=== PATIENT | male | born 1985 | race Caucasian/White ===

== ENCOUNTER 2021-08-31 16:14 | Outpatient (CLI) | payer OTHER, SELFPAY ==
--- NOTE | ~2021-08-31 | XR_ITS ---
XR shoulder LT min 2V 08/31/2021 17:10 INDICATION: Left shoulder pain PROCEDURE: 4 views left shoulder COMPARISON: No prior studies for comparison. FINDINGS: Fracture, dislocation or subluxation is not identified. The soft tissues appear within norm al limits. No foreign bodies are identified. IMPRESSION: 1: NO ACUTE BONE OR JOINT ABNORMALITY IDENTIFIED. Reviewed, dictated and finalized at location B.
== END 2021-08-31 16:15 | disposition home or self-care (01) ==
LOC: CHSIMG 16:23
PROVIDERS: PCP Family Medicine; Visit Provider Family Medicine
DX: M25.512 Pain in left shoulder (principal)
CPT/HCPCS: 73030

== ENCOUNTER 2021-09-17 07:49 | Outpatient (RCR) | payer OTHER, SELFPAY ==
--- NOTE | 2021-09-17 08:38 | PTOPEVAL ---
Thank you for referring Eligio Rose to [facility].? The patient is scheduled to be seen for therapy? __2__x/week for 10 visits. Please review, sign, date and return this plan of care TIFFANIE. I agree with and certify that the following plan of care is medically necessary. Referring Physician Date Admitting Provider: Attending Provider: Cooper Saini MD Referring Provider: *PT Outpatient Evaluation Start: 09/10/21 07:02 Freq: Status: Active Protocol: Document 09/17/21 07:57 PRAMOD (Rec: 09/17/21 08:37 PRAMOD [email or web address]) Therapy Assessment Status Assessment Status Assessment Status Evaluation Evaluation Information Problem Diagnosis left shoulder pain Onset 09/03/21 Subjective Information Pt. reports that he has had Query Text:As Reported By Patient/ shoulder pain for about 1 Family month. He reports that pain is noted with reaching overhead with the left arm. Pt. reports he has had xray. He states that pain is also increased with reaching behind his back. He states that he does have some trouble with sleep due to pain in the left shoulder. He reports that do basic yardwork is difficult due to pain. His goal for therapy is to decrease his left shoulder pain. Pain Assessment Timing of Pain Assessment Timing of Pain Assessment Pre-Treatment Pain Scale Pain Scale Used Numeric (1 - 10) Self Report Pain Assessment Left Shoulder(s) Reported Pain Level 3 Lowest Pain Intensity 2 Greatest Pain Intensity 4 Pain Aggravating Factors Exercise/Activity,Lifting Pain Behaviors None Pain Score Pain Score 3: Self Report Interventions Used Interventions Used By Clinicians Electrical Stimulation, Exercise,Heat Upper Extremity Range of Motion General Upper Extremity Range of Motion Gross Upper Extremity Range of Motion -right shoulder flexion 165 Comments degrees -left shoulder flexion 142 degrees -Pt. reaches to the mid thoracic region with the right u.e. and lower thoracic region with the left u.e. with combined shoulder IR and extension
--- NOTE | 2021-10-26 09:10 | PTOPEVAL ---
Thank you for referring Eligio Rose to [facility].? The patient is scheduled to be seen for therapy? ____x/week for ___ weeks. Please review, sign, date and return this plan of care TIFFANIE. I agree with and certify that the following plan of care is medically necessary. Referring Physician Date Admitting Provider: Attending Provider: Cooper Saini MD Referring Provider: *PT Outpatient Evaluation Start: 09/10/21 07:02 Freq: Status: Active Protocol: Document 10/26/21 08:00 JOSE (Rec: 10/26/21 08:59 [facility] [email or web address]) Evaluation Information Problem Diagnosis left shoulder pain Onset 09/03/21 Additional Evaluation Detail quick dash = 6% functionally declined Subjective Information patient reports he feels Query Text:As Reported By Patient/ Alright this date. he reports Family he still has pain in the L shouldet with use and liftin/ reaching overhead. he reports when he does a lat pulldown releasing the weight after the last rep is painful. he reports he also pulled on his shoulder getting out of bed and had some pain this morning . Pain Assessment Timing of Pain Assessment Timing of Pain Assessment Assessment Pain Scale Pain Scale Used Numeric (1 - 10) Self Report Pain Assessment Left Shoulder(s) Reported Pain Level 3 Greatest Pain Intensity 3 Pain Score Pain Score 3: Self Report Interventions Used Interventions Used By Clinicians Activity or ADL's,Education, Electrical Stimulation, Exercise,Heat Upper Extremity Range of Motion General Upper Extremity Range of Motion Gross Upper Extremity Range of Motion -left shoulder flexion 158 Comments degrees -functional L ER reach to the upper thoracic spine -functional L IR reach to the middle/upper thoracic spine -left shoulder ER AROM 80 degrees, prom 85 degrees Upper Extremity Muscle Strength Testing General Upper Extremity Strength Gross Upper Extremity Strength Comments -left shoulder flexion 5/5 -left shoulder ER 4+/5 -left shoulder IR 5/5 -left shoulder abduction 4+/5 General Exercise General Exercises Exercise Description Ther ex Query Text:Record Sets, Reps, -ar
--- NOTE | 2021-11-09 08:44 | PTOPEVAL ---
Thank you for referring Eligio Rose to [facility].? The patient is scheduled to be seen for therapy? ____x/week for ___ weeks. Please review, sign, date and return this plan of care TIFFANIE. I agree with and certify that the following plan of care is medically necessary. Referring Physician Date Admitting Provider: Attending Provider: Cooper Saini MD Referring Provider: *PT Outpatient Evaluation Start: 09/10/21 07:02 Freq: Status: Active Protocol: Document 11/09/21 08:00 Mary (Rec: 11/09/21 08:44 [facility] [email or web address]) Therapy Assessment Status Assessment Status Assessment Status Discharge Evaluation Information Problem Diagnosis left shoulder pain Onset 09/03/21 Additional Evaluation Detail quick dash = 11% functionally declined Subjective Information patient reports he feels good Query Text:As Reported By Patient/ this date. he reports he has Family been working out more at the gym. he reports he is sore but has no pain in the left shoulder. Pain Assessment Timing of Pain Assessment Timing of Pain Assessment Assessment Self Report Self Report Pain Level 0 Pain Score Pain Score 0: Self Report Upper Extremity Range of Motion General Upper Extremity Range of Motion Gross Upper Extremity Range of Motion -left shoulder flexion 160 Comments degrees -functional L ER reach to the upper thoracic spine -functional L IR reach to the middle/upper thoracic spine Upper Extremity Muscle Strength Testing General Upper Extremity Strength Gross Upper Extremity Strength Comments -left shoulder flexion 5/5 -left shoulder ER 5/5 -left shoulder IR 5/5 -left shoulder abduction 5/5 General Exercise General Exercises Exercise Description Ther ex Query Text:Record Sets, Reps, -bilateral UE arm push and Resistance, and Position pull circles x10 minutes with resistance for improved UE strength and CV endurance -tband light blue rows, ext, er, ir x30 each bilat -flex and scap 3x10 bilat with 5lb weight -bent over rows 10lb x15, 20lb x15 bilat -re-evaluation PT Clinical Summary Clinical Summary Protocol: PTEVCODE PT Clinical Summary mr. rose presents to skilled
== END 2021-11-09 11:21 | disposition home or self-care (01) ==
LOC: CHSPT 07:49
PROVIDERS: PCP Family Medicine; Visit Provider Family Medicine
DX: M25.512 Pain in left shoulder (principal)
CPT/HCPCS: 97014; 97110; 97140; 97161; G0283

== ENCOUNTER 2021-10-09 08:33 | Outpatient (CLI) | payer OTHER, SELFPAY ==
--- NOTE | 2021-10-09 11:00 | NEURO_ITS ---
Impression: # Complains of numbness of left 5th finger. # No Carpal Tunnel Syndrome. # Left ulnar neuropathy across the elbow. # Normal needle/EMG exam. Nerve Conduction Studies Anti Sensory Summary Table Stim Site NR Peak (ms) P-T Amp (?V) Site1 Site2 Delta-P (ms) Dist (cm) Ruy (m/s) Left Median Anti Sensory (2-3nd Digit) Wrist 2.8 73.0 Wrist 2-3nd Digit 2.8 14.0 50 Wrist 2.8 40.0 Wrist 2-3nd Digit 2.8 14.0 50 Left Radial Anti Sensory (Base 1st Digit) Wrist 1.9 12.7 Wrist Base 1st Digit 1.9 0.0 Left Ulnar Anti Sensory (5th Digit) Wrist 2.5 32.0 Wrist 5th Digit 2.5 14.0 56 Motor Summary Table Stim Site NR Onset (ms) O-P Amp (mV) Site1 Site2 Delta-0 (ms) Dist (cm) Ruy (m/s) Left Median Motor (Abd Poll Brev) Wrist 3.2 1.9 Elbow Wrist 4.7 28.0 60 Elbow 7.9 1.7 Left Ulnar Motor (Abd Dig Minimi) Wrist 2.7 6.0 A Elbow Wrist 5.5 28.0 51 A Elbow 8.2 4.3 B Elbow Wrist 3.7 22.0 59 B Elbow 6.4 5.1 F Wave Studies NR F-Lat (ms) L-R F-Lat (ms) Left Median (Mrkrs) (Abd Poll Brev) 27.68 Left Ulnar (Mrkrs) (Abd Dig Min) 28.67 EMG Side Muscle Nerve Root Ins Act Fibs Amp Dur Recrt Comment Left 1stDorInt Ulnar C8-T1 Nml Nml Nml Nml Nml Left Ext Indicis Radial (Post Int) C7-8 Nml Nml Nml Nml Nml Left Ext Digitorum Radial (Post Int) C7-8 Nml Nml Nml Nml Nml Left BrachioRad Radial C5-6 Nml Nml Nml Nml Nml Left PronatorTeres Median C6-7 Nml Nml Nml Nml Nml Left Abd Poll Brev Median C8-T1 Nml Nml Nml Nml Nml Left ABD Dig Min Ulnar C8-T1 Nml Nml Nml Nml Nml MTDD
== END 2021-10-09 08:34 | disposition home or self-care (01) ==
PROVIDERS: PCP Family Medicine; Visit Provider Family Medicine
DX: G56.22 Lesion of ulnar nerve, left upper limb (principal)
CPT/HCPCS: 95886; 95909

== ENCOUNTER 2023-04-22 11:17 | Outpatient (CLI) | payer OTHER, SELFPAY ==
--- NOTE | ~2023-04-22 | XR_ITS ---
XR lumbar spine 2-3V DATE: 04/22/2023 11:37 INDICATION: Low back pain TECHNIQUE: AP, lateral, coned lateral lumbosacral views COMPARISON: None FINDINGS: Normal alignment of the lumbar spine. No fracture or bone destruction or spondylolisthesis. Included lower thoracic and lumbar pedicles are intact. There is severe degenerative disease and prominent anterior spurring at L5-S1. There is mild degenera tive disc disease at L4-5. The remaining lumbar interspaces are well preserved. The sacroiliac joints are intact. IMPRESSION: Severe degenerative disc disease at L5-S1, mild degenerative disc disease at L4-5 Reviewed, dictated and finalized at location L. STENCILER IMPRESSION: Severe degenerative disc disease at L5-S1, mild degenerative disc d isease at L4-5
== END 2023-04-22 11:18 | disposition home or self-care (01) ==
LOC: CHSIMG 11:19
PROVIDERS: PCP Family Medicine; Visit Provider Family Medicine
DX: M54.50 Low back pain, unspecified (principal); M51.36 Other intervertebral disc degeneration, lumbar region
CPT/HCPCS: 72100

== ENCOUNTER 2023-05-13 09:14 | Outpatient (RCR) | payer OTHER, SELFPAY ==
--- NOTE | 2023-05-13 10:16 | OPREHPOC ---
Outpatient Therapy Plan of Care This is a Multidisciplinary Plan of Care that may contain components documented by all disciplines (PT, OT, and ST.) PT Problem 1 PT Problem #1 Knowledge Deficit PT Goal 1 Goal The patient will be independent in a home exercise program to continue after discharge from formal PT. Target Visit 12 PT Problem 2 PT Problem #2 Pain PT Goal 1 Goal The patient will report no greater than 2/10 low back pain with daily activities. Target Visit 12 PT Problem 3 PT Problem #3 Impaired Functional Mobil PT Goal 1 Goal The patient will have 20% or less self perceived disability per the Modified Oswestry pain questionnaire. PT Problem 4 PT Problem #4 Impaired Strength PT Goal 1 Goal The patient will demonstrate 4/5 strength in the upper abdominals, lower abdominals, and lumbar extensors to improve lifting ability. Target Visit 12
--- NOTE | 2023-05-13 10:17 | PTOPEVAL1 ---
Assessment and note entered by Milady Barrientos, PT Evaluation Information Assessment Status Evaluation Diagnosis Low Back Pain Subjective Information Eligio Rose reports he has had low back pain for several years and it is gradually getting worse. He denies an injury that started pain but reports he was in the [employer] for 8 years. He had recent x- rays that showed severe lumbar degenerative disc disease with spurring at L5-S1. He reports pain comes and goes and sometimes he has nerve pain. He will typically get nerve pain down the back of the left leg and occasionally in the right. He also notes tingling if he sits in a weird position too long. 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 He also notes pain with bending over at the waist and he is limited with standing and walking as well. He has tried chiropractor care in the past with some improvements but does not currently go. Reported Pain Level Pain Score 4: Self Report Assessment PT Clinical Summary Eligio Rose presents with chronic low back pain and has been diagnosed with degenerative disc disease. He has difficulty with prolonged sitting, prolonged walking, and bending at the waist leading to difficulty performing a desk job, shopping, and cleaning/dressing his lower extremity. He objectively demonstrates decreased and painful lumbar AROM, decreased core strength, decreased bilateral hip strength, decreased hamstring and piriformis flexibility, and tenderness at the left SIJ and L5 areas. He also has positive special tests for lumbar nerve root irritation. He will benefit from skilled PT to address these limitations. Plan of Care Interventions Electrical Stimulation,Hot Pack/Cold Pack,Manual Therapy,Mechanical Traction,Neuro Re-education, Patient/Caregiver Educati,Therapeutic Activities, Therapeutic Exercise PT Services Indicated Yes Treatment Frequency and 3 times a week for 12 visits Duration These treatments will address the objective and functional deficits as defined above. The patient will be advanced safely and appropriately in order for the patient to progress towards his/her prior level of function. Additional exercises will be introduced and as well as a comprehensive home exercise program upon discharge, if needed, ?to ensure carryover of functional gains achieved in the clinic. This treatment plan has been reviewed and agreement upon by the patient.
--- NOTE | 2023-06-04 08:03 | OPREHPOC ---
Outpatient Therapy Plan of Care This is a Multidisciplinary Plan of Care that may contain components documented by all disciplines (PT, OT, and ST.) PT Problem 1 PT Problem #1 Knowledge Deficit PT Goal 1 Goal The patient will be independent in a home exercise program to continue after discharge from formal PT. Target Visit 12 Progress Partially Met PT Problem 2 PT Problem #2 Pain PT Goal 1 Goal The patient will report no greater than 2/10 low back pain with daily activities. Target Visit 12 Progress Not Met PT Problem 3 PT Problem #3 Impaired Functional Mobil PT Goal 1 Goal The patient will have 20% or less self perceived disability per the Modified Oswestry pain questionnaire. Progress Not Met PT Problem 4 PT Problem #4 Impaired Strength PT Goal 1 Goal The patient will demonstrate 4/5 strength in the upper abdominals, lower abdominals, and lumbar extensors to improve lifting ability. Target Visit 12 Progress Not Met
--- NOTE | 2023-06-04 08:03 | PTOPPROGNS ---
Assessment and note entered by Milady Barrientos, PT Evaluation Information Assessment Status Progress Diagnosis Low Back Pain Onset 05/08/23 Subjective Information Eligio Rose reports that his low back pain has not really changed since initiating PT. He notes stiffness and pain that is worse in the morning. He typically sleeps on his stomach. He states his thought she felt a lump in his left lower back recently while rubbing his back. He thought the traction tried in PT was a little helpful initially but then started making him more stiff. Assessment PT Clinical Summary Eligio Rose has completed 10 skilled PT visits. He is reporting no big change in low back pain symptoms noting stiffness in the mornings. He is a stomach sleeper and has been educated on ideal sleeping positions to promote a neutral spine. He is making progress with strength goals and demonstrates improved lumbar AROM since initiating PT. He does continue to have core and hip strength deficits, tenderness along the left lower lumbar structures, and constant pain. He will continue to benefit from skilled PT to further address these limitations. Plan of Care Interventions Electrical Stimulation,Hot Pack/Cold Pack,Manual Therapy,Mechanical Traction,Neuro Re-education, Patient/Caregiver Educati,Therapeutic Activities, Therapeutic Exercise PT Services Indicated Yes Treatment Frequency and Continue with remaining 2 visits on POC. Duration These treatments will address the objective and functional deficits as defined above. The patient will be advanced safely and appropriately in order for the patient to progress towards his/her prior level of function. Additional exercises will be introduced and as well as a comprehensive home exercise program upon discharge, if needed, ?to ensure carryover of functional gains achieved in the clinic. This treatment plan has been reviewed and agreement upon by the patient.
--- NOTE | 2023-06-09 07:41 | PTOPDC ---
Assessment and note entered by Magda Jacobson DPT Evaluation Information Assessment Status Discharge Diagnosis Low Back Pain Onset 05/08/23 Subjective Information patient reports that he continues to be more stiff in the mornings. he reports he has been trying to sleep in different positions with no change. he reports he continues to be independent with HEP. he reports that his PCP is supposed to be sending a consult for an ortho. Reported Pain Level Pain Score 4: Self Report Assessment PT Clinical Summary Mr. Rose has been seen for 12 visits of skilled PT from 05/13/23-06/09/23. Patient reports limited progress made in skilled PT with pain and stiffness remaining the same since start of PT. He continues to demonstrate core and back extensor weakness. He reports pain and stiffness is worse in the mornings. He reports he is independent with HEP. He will be discharged at this time and will follow up with MD regarding ortho consult. Plan of Care PT Services Indicated No
== END 2023-06-09 08:04 | disposition home or self-care (01) ==
LOC: CHSPT 09:14
PROVIDERS: Visit Provider Family Medicine
DX: M54.50 Low back pain, unspecified (principal)
CPT/HCPCS: 97012; 97014; 97110; 97140; 97161; 97530; G0283

== ENCOUNTER 2024-10-11 15:32 | Outpatient (CLI) | payer OTHER, SELFPAY ==
--- NOTE | ~2024-10-11 | XR_ITS ---
EXAM/ PROCEDURE: XR hand RT min 3V - 10/11/2024 15:35 CDT HISTORY: 39 years old Male with Pain in right hand over 3rd MCP joint after board fell on it COMPARISON: None available TECHNIQUE: Three view(s) FINDINGS/ IMPRESSION: Subacute displaced fracture of the fourth middle phalanx with dorsal angulation.Joint spaces are with in normal limits. Reviewed, dictated and finalized at location A.
--- OUTSIDE RECORDS SUMMARY | 2024-10-11 15:35 | XMS_ITS | Encounter Summary ---
Author Name [facility] [facility] [place] Address [address] [place] [address] Care Team Providers Care Copper Miner Name Role Phone MITALI MEYER Primary Care Provider Unavailabl e Insurance Providers: All historical and current Section Date Range: From patient's date of to the date document was created. This section includes the names of all active insurance providers for the patient. Insurance Provider Type of Coverage Plan Name Start of Policy Coverage End of Policy Coverage Group Number Member ID Insurance Provider's Telephone Number Policy Laird's Name Patient's Relationship to Policy Laird [employer] PRES[employer] ION PRESTON ANTONIO DACOSTA Mar 24, 2023 [id number] JUWAN,CYNDI ID PATIENT [employer] PREFERRED PROVIDER ORGANIZAT ION (PPO) PRESTONBhavesh DACOSTA HEALT H Mar 24, 2020 [id number] [phone] JUWAN,CYNDI ID PATIENT Selected Encounter This section includes the information on record at [place] for the Encounter. Date/Time Encounter Type Encounter Description Reason Provider Source Jun 01, 2024 08:00 AM CHIROPRACT MANJ 3-4 [employer] D[employer] TECHNICIAN ICD-10-CM M54.50 Low back pain, unspecified SUNI GILMORE Encounter Template Text not used by [facility] Assessments - Encounter Diagnoses This section includes the primary and secondary diagnoses documented for the Encounter. Date/Time Primary/Secondary Diagnosis Diagnosis Name Provider Source Jun 01, 2024 08:32 AM PRIMARY Low back pain, unspecified GILMOREZACK Briones [facility] Jun 01, 2024 08:32 AM SECONDARY Cervicalgia ZACK GILMORE [facility] Jun 01, 2024 08:32 AM SECONDARY Pain in thoracic spine ZACK GILMORE [facility] Encounter Notes: All associated encounter notes This section contains the clinical notes associated to the Encounter. Date/Time Encounter Note(s) Provider Source Jun 01, 2024 07:45 AM CHIROPRACTIC NOTE: LOCAL TITLE: CHIROPRACTIC [facility] F/U [facility] STANDARD TITLE: CHIROPRACTIC NOTE DATE OF NOTE: JUN 01, 2024@07:45 ENTRY DATE: JUN 01, 2024@07:45:40 AUTHOR: ZACK GILMORE COSIGNER: URGENCY: STATUS: COMPLETED VISIT #4 SUBJECTIVE: Nilton stated he has not felt too bad. The lower back has been doing pretty good. He is going to the gym, stretching and riding his motorcycle. The mid back is a little achy. He was looking to the side some last week and that aggravated his neck. MOVEMENT/POSTURE: The ambulates without difficulty or the need for assistance. SEGMENTAL DYSFUNCTION: Joint dysfunction was noted SI joint, lumbar, thoracic and cervical spine. PALPATION: Tight and tender muscles of the lumbar and thoracic regions. CERVICAL ACTIVE RANGE OF MOTION: Flexion 40 degrees tight/achy left C/T region, Extension 50 degrees, Lateral Bending 40 degrees right stretch left, 40 degrees left discomfort left, Rotation 60 degrees right, 55 degrees left, stiff left. LUMBAR ACTIVE RANGE OF MOTION: Flexion 90 degrees stiff, Extension 25 degrees pinch central lumbosacral, Lateral Bending 20 degrees bilaterally stretch contralaterally, Rotation 25 degrees bilaterally with stiffness in both directions. ASSESSMENT: The patient does have a mechanical form of low back pain with associated segmental dysfunction of the SI joint, lumbar, and thoracic regions complicated by degenerative changes in the lumbar spine. The Napoleon is a candidate for the [place] Program but my prognosis remains guarded based on the chronic nature of his condition, the moderate DJD and spurring he noted from his X-Ray findings. PLAN: The patient was given a review of findings following the exam. The benefits, risks and alternatives to manager care were discussed with the patient, along with an opportunity to ask questions. Patient then gave an informed consent to treatment. Plan of care will consist of 4-6 visits consisting of chiropractic manipulation with an incremental increase in home exercise depending on the patients response. The patient agrees to this plan. Treatment I did manual flexion/distraction on the lumbar spine. Vibratory massage was used with the Hyperice massage instrument to help decrease muscle tightness in the lumbar and thoracic spine. Spinal manipulation using the IQ adjusting instrument on the SI joint, lumbar, thoracic and cervical spine. The left C/T region was still tight so I adjusted it manually supine. Therapeutic Exercise: I told the Napoleon how to use the bridge equipment he uses at the gym. He has been feeling it in the quads rather than the glutes. I went over body placement. The reported feeling better following his treatment. HOME CARE: went over how to do bridge exercise on a machine he uses at the gym. Continue to do the recommendations below. I remined him to do the exercises I recommended in addition to what he is doing at the gym. hip flexor stretch right side. Bridge exercise 15x/day work into 3 sets. knee to chest, glute and hamstring stretches 5x/day 20 second hold. ice if sore. sit with feet flat on the floor. place a pillow under the knees if lying on back. Place a pillow in between the knees if lying on side. RTC: 06/01/24 /rober/ Zack Gilmore D.C. Chiropractic Physician-Fee Basis Signed: 06/01/2024 08:32 ZACK GILMORE [facility]
--- OUTSIDE RECORDS SUMMARY | 2024-10-11 15:35 | XMS_ITS | Clinical Summary ---
Author Organization [facility] Address [address] [place] [address] Phone Care Team Providers Care Cardiovascular Surgical Tech Name Role Phone Louis Vasquez MD Primary Care Provider [phone] Allergies Active Allergy Reactions Criticality Noted Date Comments Tramadol Vomiting 02/03/2024 Medications methocarbamol (ROBAXIN) 750 MG Tablet Take 750 mg by mouth in the morning and at bedtime. Active diclofenac (VOLTAREN) 75 MG Tablet Delayed Response Take 75 mg by mouth 2 times daily. STOPPED TAKING ON 02/04/2024 FOR SURGERY ON 02/12/2024 Active Multiple Vitamin (MULTIVITAMIN PO) Take 1 Tablet by mouth daily. INSTRUCTED TO HOLD FOR 3 DAYS PRIOR TO SURGERY ON 02/12/2024 Active mometasone (Nasonex) 50 MCG/ACT Suspension 2 Sprays by Nasal route daily. Use in each nostril as directed. Active acetaminophen (Tylenol) 325 MG Tablet Take 325 mg by mouth every 4 hours as needed. Active Active Problems Problem Noted Date Diagnosed Date Ulnar neuropathy at elbow of left upper extremit y 02/12/2024 Lipoma of left forearm 02/12/2024 Family History Medical History Relation Name Comments No Known Problems Father Cirrhosis Mother Diabetes Mother Heart Disease Mother Hypertension Mother Relation Name Status Comments Father Alive Mother Social History Tobacco Use Types Packs/Day Years Used Date Smoking Tobacco: Former Cigarettes Q uit: 2018 Smokeless Tobacco: Never Alcohol Use Standard Drinks/Week Comments Yes 0 (1 standard drink = 0.6 oz pur e alcohol) rarely Sexually Active Control Partners Comments Yes Female Sex and Gender Information Value Date Recorded Sex Assigned at Not on file Legal Sex Male 2:14 PM CDT Gender Identity Not on file Sexual Orientation Not on file Last Filed Vital Signs Vital Sign Reading Time Taken Comments Blood Pressure 124/79 02/12/2024 10:00 AM LABOR STANDARDS DIRECTOR Pulse 75 02/12/2024 10:00 AM LABOR STANDARDS DIRECTOR Temperature 36 C (96.8 F) 02/12/2024 9:47 AM LABOR STANDARDS DIRECTOR Respiratory Rate 16 02/12/2024 10:00 AM LABOR STANDARDS DIRECTOR Oxygen Saturation 94% 02/12/2024 10:00 AM LABOR STANDARDS DIRECTOR Inhaled Oxygen Concentration - - Weight 98.5 kg (217 lb 1.6 oz) 02/12/2024 6:06 A M LABOR STANDARDS DIRECTOR Height 168.9 cm (5' 6.5) 02/12/2024 6:06 AM LABOR STANDARDS DIRECTOR Body Mass Index 34.52 02/12/2024 6:06 AM LABOR STANDARDS DIRECTOR Plan of Treatment Health Maintenance Due Date Last Done Comments Hepatitis C Virus (HCV) Screening 1985 Human Papillomavirus (HPV) Immunization (1 - Male 3-dose series) 07/24/1999 SARS-COV-2 Immunization (3 - season) 2023 07/08/2020, 06/17/2020 Influenza Immunization (#1) 11/22/202403/2023, 12/12/2022, 01/08/2019, Additional history exists Respiratory Syncytial Virus (RSV) Immunization (Adult) (1 - 1-dose 75+ series) 07/24/2059 Meningococcal Immunization (ACWY) Aged Out 07/17/2007 No longer eligible based on patient's age to complete this topic Hepatitis B Immunization Completed 009, 08/18/2007, 07/17/2007 TdaP Immunization Completed 10/20/2015, 07/17/2007 Pneumococcal Immunization Combined Aged Out No longer eligible based on patient's age to complete this topic Rotavirus Immunization Aged Out No lo nger eligible based on patient's age to complete this topic [place] [address] [place] [address] Care Teams Cardiovascular Surgical Tech Relationship Specialty Start Date End Date Louis Vasquez MD [address] [place] [address] PCP - General Orthopaedic Surgery 11/04/23
--- OUTSIDE RECORDS SUMMARY | 2024-10-11 15:35 | XMS_ITS | Clinical Summary ---
Author Organization [facility] Address [address] [place] [address] Care Team Providers Care Awning Hanger Helper Name Role Phone Unavailable Primary Care Provider Unavailabl e Social History Tobacco Use Types Packs/Day Years Used Date Smoking Tobacco: Never Assessed Sex and Gender Information Value Date Recorded Sex Assigned at Not on file Legal Sex Male 9:22 PM CDT Gender Identity Not on file Sexual Orientation Not on file Last Filed Vital Signs Vital Sign Reading Time Taken Comments Blood Pressure 129/82 06/18/2016 9:14 AM CDT Pulse 67 06/18/2016 9:14 AM CDT Temperature - - Respiratory Rate - - Oxygen Saturation - - Inhaled Oxygen Concentration - - Weight 90.7 kg (200 lb) 06/18/2016 9:14 AM CDT Height 167.6 cm (5' 6) 06/18/2016 9:14 AM CDT Body Mass Index 32.28 06/18/2016 9:14 AM CDT Plan of Treatment Health Maintenance Due Date Last Done Comments Annual Physical 07/24/1987 Hepatitis C 2002 DTaP, Tdap and Td Vaccines ( 1 - Tdap) 07/24/2003 Hepatitis B Vaccines (1 of 3 - 19+ 3-dose series) 07/24/2003 HPV Vaccines (1 - 3-dose SCD M series) 07/24/2011 COVID-19 Vaccine (2023-2 5 season) 2023 Meningococcal B Vaccine Aged Out No l onger eligible based on patient's age to complete this topic Meningococcal Vaccine Aged Out No antione carolina eligible based on patient's age to complete this topic Pneumococcal Vaccine: Pediat rics (0 to 5 Years) and At-Risk Patients (6 to 49 Years) Aged Out No longer eligible b ased on patient's age to complete this topic RSV Immunizations Under 20 Months Aged Out No longer eligible based on patient's age to complete this topic
--- OUTSIDE RECORDS SUMMARY | 2024-10-11 15:35 | XMS_ITS | Encounter Summary ---
Author Organization [facility] Address [address] [place] [address] Phone Care Team Providers Care Podiatry Doctor Name Role Phone Louis Vasquez MD Primary Care Provider [phone] Reason for Referral * Radiology Services (Routine) - Closed Specialty Diagnoses / Procedures Referred By Amairani sauceda Referred To Contact Radiology Diagnoses Pre-op testing Procedures EKG 12 LEAD Louis Vasquez MD [address] [place] [address] Phone: tel: fax: Referral ID Status Reason Start Date Expiration Date Visits Re quested Visits Authorized [id number] Closed 10/13/2023 1 1 Encounter Details Date Type Department Care Team (Latest Contact Info) Description 10/13/2023 [facility] [address] [place] [address] Louis Vasquez MD [address] [place] [address] Pre-op testing (Primary Dx) Social History Tobacco Use Types Packs/Day Years Used Date Smoking Tobacco: Never Assessed Sex and Gender Information Value Date Recorded Sex Assigned at Not on file Legal Sex Male 2:14 PM CDT Gender Identity Not on file Sexual Orientation Not on file documented as of this encounter Plan of Treatment Not on file documented as of this encounter Results * EKG 12 LEAD (11/04/2023 11:39 AM CDT) Ventricular Rate 57 BPM EXTERNAL EKG Atrial Rate 57 BPM EXTERNAL EKG P-R Interval 156 ms EXTERNAL EKG QRS Duration 94 ms EXTERNAL EKG Q-T Duration 412 ms EXTERNAL EKG QTC CALCULATION 401 ms EXTERNAL EKG P [place] 32 degrees EXTERNAL EKG R [place] 0 degrees EXTERNAL EKG T [place] 11 degrees EXTERNAL EKG 11/04/2023 11:3 9 AM CDT Impressions EXTERNAL EKG - 11/05/2023 3:33 AM CDT Sinus bradycardia Otherwise normal ECG No previous ECGs available Confirmed by Abraham Blair ([id number]) on 11/05/2023 3:33:26 AM Narrative Procedure Note Abraham Blari MD PhD - 11/05/2023 IMPRESSION: Sinus bradycardia Otherwise normal ECG No previous ECGs available Confirmed by Abraham Blair ([id number]) on 11/05/2023 3:33:26 AM Louis Vasquez MD IMG ECG ORDERABLES Final Result EXTERNAL EKG * CMP (COMPREHENSIVE METABOLIC PANEL) (11/04/2023 11:32 AM CDT) SODIUM 139 136 - 145 mmol/L 11/04/2023 1:31 PM CDT [facility] POTASSIUM 4.2 3.5 - 5.1 mmol/L 11/04/2023 1:31 PM CDT [facility] CHLORIDE 106 98 - 107 mmol/L 11/04/2023 1:31 PM CDT [facility] CO2, VENOUS 27 22 - 30 mmol/L 11/04/2023 1:31 PM CDT [facility] ANION GAP 10.2 <18.0 mmol/L 11/04/2023 1:31 PM CDT [facility] GLUCOSE 92 70 - 99 mg/dL 11/04/2023 1:31 PM CDT [facility] BUN 12 9 - 21 mg/dL 11/04/2023 1:31 PM [facility] CREATININE, BLOOD 0.94 0.70 - 1.30 mg/dL 11/04/2023 1:31 PM [facility] BUN/CREATININE RATIO 13 12 - 20 ratio 11/04/2023 1:31 PM [facility] TOTAL PROTEIN 6.8 6.3 - 8.2 g/dL 11/04/2023 1:31 PM [facility] ALBUMIN 4.4 3.5 - 5.0 g/dL 11/04/2023 1:31 PM [facility] A/G RATIO 1.8 1.0 - 2.2 11/04/2023 1:31 PM [facility] CALCIUM 9.5 8.7 - 10.5 mg/dL 11/04/2023 1:31 PM [facility] T BILI 0.4 0.2 - 1.2 mg/dL 11/04/2023 1:31 PM [facility] SGOT (AST) 18 5 - 34 U/L 11/04/2023 1:31 PM [facility] SGPT (ALT) 24 0 - 55 U/L 11/04/2023 1:31 PM [facility] ALKALINE PHOSPHATASE 40 40 - 150 U/L 11/04/2023 1:31 PM [facility] IS THE PATIENT REQUIRED TO BE FASTING? No 11/04/2023 1:31 PM [facility] GFR, ESTIMATED >60 >=60 11/04/2023 1:31 PM [facility] Comment: Creatinine Clearance is the preferred criteria for selecting drug dose adjustments in renally impaired patients. The GFR is provided as additional pertinent clinical information. GFR is reported in mL/min/1.73 sq m. Calculation based on the Chronic Kidney Disease Epidemiology Collaboration (CKD- EPI) equation refit without adjustment for race. GFR, EST. >60 >=60 024 1:31 PM CDT [facility] GFR, EST. NONAFRICAN >60 >=60 11/04/2023 1:31 PM CDT [facility] Blood Venipuncture / Unknown 11/04/2023 11:32 AM CDT 11/04/2023 11:58 AM CDT us Louis Vasquez MD CHEMISTRY ORDERABLES Final Resul t [facility] [address] [place] [address] documented in this encounter Visit Diagnoses Diagnosis Pre-op testing- Primary Preoperative examination, unspecified Pre-op testing Preoperative examination, unspecified documented in this encounter Care Teams Podiatry Doctor Relationship Specialty Start Date End Date Louis Vasquez MD [address] [place] [address] PCP - General Orthopaedic Surgery 11/04/23 documented as of this encounter
--- OUTSIDE RECORDS SUMMARY | 2024-10-11 15:35 | XMS_ITS | Encounter Summary ---
Author Organization [facility] Address [address] [place] [address] Phone Care Team Providers Care Data Input Clerk Name Role Phone Louis Vasquez MD Primary Care Provider [phone] Encounter Details Date Type Department Care Team (Late st Contact Info) Description 01/19/2024 Transcribe Orders [facility] Preop/Pacu II [address] [place] [address] Louis Vasquez MD [address] [place] [address] Social History Tobacco Use Types Packs/Day Years Used Date Smoking Tobacco: Former Cigarettes Smokeless Tobacco: Never Alcohol Use Standard Drinks/Week Comments Yes 0 (1 standard drink = 0.6 oz pur e alcohol) SOCIALLY Sex and Gender Information Value Date Recorded Sex Assigned at Not on file Legal Sex Male 2:14 PM CDT Gender Identity Not on file Sexual Orientation Not on file documented as of this encounter Plan of Treatment Not on file documented as of this encounter Visit Diagnoses Not on filedocumented in this encounter Care Teams Data Input Clerk Relationship Specialty Start Date End Date Louis Vasquez MD [address] [place] [address] PCP - General Orthopaedic Surgery 11/04/23 documented as of this encounter
--- OUTSIDE RECORDS SUMMARY | 2024-10-11 15:35 | XMS_ITS | Encounter Summary ---
Author Name [facility] Organization [facility] Address [address] [place] [address] Care Team Providers Care Winchman/Crane Operator Name Role Phone MITALI MEYER Primary Care [...] Policy Laird [facility] PRESCRIPT ION PRESTON DACOSTA Mar 24, 2023 [id number] JUWAN,CYNDI ID PATIENT UMR PREFERRED PROVIDER ORGANIZAT ION (PPO) PRESTONBhavesh DACOSTA HEALT H Mar 24, 2020 [id number] JUWAN,CYNDI ID PATIENT Selected Encounter This section includes the information on record at [place] for the Encounter. 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 Date/Time Primary/Secondary Diagnosis Diagnosis Name Provider Source May 04, 2024 12:38 PM PRIMARY Vertebrogenic low back pain ZACK GILMORE [facility] May 04, 2024 12:38 PM SECONDARY Pain in thoracic spine ZACK GILMORE [facility] Plan of Treatment: Future Appointments (+ 6 months) and Future Tests (+/- 45 days) The Plan of Treatment section includes future care activities for the patient from all [place] treatmentfacilities. This section includes future appointments and future orders which are active, pending or scheduled. Future Appointments This section includes appointments that were scheduled to occur 6 months from the date of the Encounter, up to a maximum of 20 appointments. The data comes from all [place] treatment facilities. Appointment Date/Time Appointment Type Appointme nt Facility Name May 11, 2024 08:00 AM AMBULATORY - NONE [facility] May 25, 2024 08:00 AM AMBULATORY - NONE [facility] Jun 01, 2024 08:00 AM AMBULATORY - NONE [facility] Encounter Notes: All associated encounter notes This section contains the clinical notes associated to the Encounter. Date/Time Encounter Note(s) Provider Source May 04, 2024 08:56 AM CONSULT: LOCAL TITLE: [facility] STANDARD TITLE: CONSULT DATE OF NOTE: MAY 04, 2024@08:56 ENTRY DATE: MAY 04, 2024@08:57:05 AUTHOR: ZACK GILMORE EXP COSIGNER: URGENCY: STATUS: COMPLETED REQUESTING PROVIDER: MITALI MEYER Please note that this dictation was completed with computer voice recognition software, often unanticipated grammatical, syntax and other interpretive errors are inadvertently transcribed by the computer software. Please disregard these errors. 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 He gets pain just below the shoulder blades on shopping days/standing on hard floors for a while. He will try to get [facility]. He always has knee pain. The big toe mainly in the left foot bothers him. They tested him for Gout. It was negative. The noted he gets sciatica at times with random movements but not currently. It will radiate a tingling sensation into the right buttock, sometimes posterior thigh and at times into the lower leg and foot. He is going to the gym to try and strengthen his core. The lower back is aggravated when he is lying on his back. It feels better when he is lying on his stomach. He tends to lie on his stomach. RED FLAGS: [-] Recent unexplained weight loss [-] History of Cancer [-] Recent fever/chills [-] Chest Pain/SOB [-] Abdominal Pains [-] Bowel/Bladder Dysfunction [-] New Severe Headache [-] Dizziness [-] History of Stroke PAST HISTORY: Surgery/Facet or Epidural Inj: Surgery 02.12.24 for ulnar nerve decompression left elbow, 2 knee surgeries for ACL reconstruction and Meniscal reconstruction too. He has had numerous lipoma's removed from the lower back, 4 in the left arm and 1 in the right arm. Past DC/PT/TENS: He has seen a Chiropractor at a few years ago. It helped sometimes. He has done PT on the civilian side last year. He has a possible torn labrum in the left shoulder based on a PT he saw a few years ago. He has a TENS unit but the dog chewed up the cords. SIGNIFICANT INJURY OR ILLNESS: SOCIAL HISTORY/EMPLOYMENT: He was in the [employer]. 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: TOBACCO: Denies ETOH: Denies ILLICITS: Denies Service Connected: Yes (80%) DS - Disabilities Eligibility: SERVICE CONNECTED 50% to 100% VERIFIED Total S/C %: 80 LIMITED FLEXION OF KNEE 10% S/C URTICARIA 0% S/C LOSS OF EYE 0% S/C SCARS 0% S/C PARALYSIS OF EXTERNAL POPLITEAL NERVE 20% S/C SUPERFICIAL SCARS 10% S/C 2ND DEGREE ZURITA 0% S/C ALLERGIC OR VASOMOTOR RHINITIS 0% S/C MIGRAINE HEADACHES 0% S/C UNDIFFERENTIATED SOMATOFORM DISORDER 30% S/C PARALYSIS OF SCIATIC NERVE 20% S/C LIMITED MOTION OF ANKLE 10% S/C INTERVERTEBRAL DISC SYNDROME 20% S/C REFERRAL DATE: 02/06/24 EXAM DATE(S): 05/04/24 09:00 INITIAL TREATMENT DATE: 05/04/24 09:00 TYPE OF CARE: active DISCHARGE DATE: ALERTS: EXAMINATION APPEARANCE, MOOD & ORIENTATION The patient is a 38 year old WHITE NOT OR MALE, who is alert and oriented to person, place, and time. The patient is in no apparent distress and is well developed and well nourished. Patient walks with no difficulty. There is no visible antalgia nor hitch in his gait OBJECTIVE/PALPATION: Moderate muscle tightness/trigger points in the quadratus lumborum, trapezius and rhomboids musculature. THORACOLUMBAR RANGE OF MOTION: Flexion 90 degrees stiff, Extension 15 degrees pain, Lateral bending 20 degrees bilaterally, Rotation 25 degrees bilaterally. NEUROLOGICAL EXAM: Brachioradialis 2/2, Biceps 0/0, Triceps 1/2, Patellar 1/2, Achilles 1/2. ORTHOPEDIC EXAM: Branch's right rotation upper body and extension pain produced lumbosacral region. left rotation upper body and extension pain produced lumbosacral region. Seated Bechterew negative Valsalva negative Straight Leg Raise left leg raised to 60 degrees pain left lumbosacral region. negative right leg raised. Heel to buttock right leg produced pain lumbosacral region. left leg produced pain lumbosacral region Purlear's tested right and left leg both produced pain lumbosacral region. REVIEW OF DIAGNOSTIC IMAGING: none provided ASSESSMENT: The patient does have a mechanical form of low back pain with associated segmental dysfunction of the SI joint, lumbar, and thoracic regions complicated by degenerative changes in the lumbar spine. The [place] is a candidate for the Whole Health Program but my prognosis remains guarded based on the chronic nature of his condition, the moderate DJD and spurring he noted from his X-Ray findings. PLAN: The patient was given a review of findings following the exam. The benefits, risks and alternatives to infant caregiver were discussed with the patient, along with an opportunity to ask questions. Patient then gave an informed consent to treatment. Plan of care will consist of 4-6 visits consisting of chiropractic manipulation with an incremental increase in home exercise depending on the patients response. The patient agrees to this plan. Treatment consisted of manual flexion/distraction lumbar spine. He felt a pinch on the first flexion but told me it was OK. The Hyperice massage instrument was well tolerated on the lumbar and thoracic paraspinals to help decrease tightness. Spinal manipulation using the IQ adjusting instrument was on the SI joint, lumbar and thoracic spine. I adjusted the SI joint, lumbar and thoracic spine manually. Manual therapy to stretch the hips and gluteal region did produced some discomfort in the lumbosacral region but he said it was OK. Therapeutic Exercise: I demonstrated and Patient performed and instructed in knee to chest, glute and hamstring stretches 5x/day 20 second hold. The patient reported feeling a little better following his treatment. HOME CARE: knee to chest, glute and hamstring stretches 5x/day 20 second hold. ice if sore. sit with feet flat on the floor. place a pillow under the knees if lying on back. Place a pillow in between the knees if lying on side. RTC: 05/11/24 /rober/ Zack Gilmore D.C. Chiropractic Physician-Fee Basis Signed: 05/04/2024 12:[address] [facility]
--- OUTSIDE RECORDS SUMMARY | 2024-10-11 15:36 | XMS_ITS | Encounter Summary ---
Author Name [facility] [place] [facility] Address [address] [place] [address] Care Team Providers Care Set Up And Lay Out Inspector Name Role Phone MITALI MEYER Primary Care [...] ION PRESTON ANTONIO DACOSTA Mar 24, 2023 [id number] JUWAN,CYNDI ID PATIENT [facility] PREFERRED PROVIDER ORGANIZAT ION (PPO) PRESTONBhavesh DACOSTA HEALT H Mar 24, 2020 [id number] JUWAN,CYNDI ID PATIENT Selected Encounter This section includes the information on record at [place] for the Encounter. Date/Time Encounter Type Encounter Description Reason Provider Source May 11, 2024 08:00 AM CHIROPRACT MANJ 3-4 [employer] ICD-10-CM M54.51 Vertebrogenic low back pain SUNI GILMORE Encounter Template Text not used by [facility] Assessments - Encounter Diagnoses This section includes the primary and secondary diagnoses documented for the Encounter. Date/Time Primary/Secondary Diagnosis Diagnosis Name Provider Source May 11, 2024 08:33 AM PRIMARY Vertebrogenic low back pain ZACK GILMORE [facility] May 11, 2024 08:33 AM SECONDARY Pain in thoracic spine ZACK GILMORE [facility] Plan of Treatment: Future Appointments (+ 6 months) and Future Tests (+/- 45 days) The Plan of Treatment section includes future care activities for the patient from all [place] treatmentfacilities. This section includes future appointments and future orders which are active, pending or scheduled. Future Appointments This section includes appointments that were scheduled to occur 6 months from the date of the Encounter, up to a maximum of 20 appointments. The data comes from all [place] treatment facilities. Appointment Date/Time Appointment Type Appointme nt Facility Name May 25, 2024 08:00 AM AMBULATORY - NONE [facility] Jun 01, 2024 08:00 AM AMBULATORY - NONE [facility] Encounter Notes: All associated encounter notes This section contains the clinical notes associated to the Encounter. Date/Time Encounter Note(s) Provider Source May 11, 2024 07:52 AM CHIROPRACTIC NOTE: LOCAL TITLE: CHIROPRACTIC [facility] STANDARD TITLE: CHIROPRACTIC NOTE DATE OF NOTE: MAY 11, 2024@07:52 ENTRY DATE: MAY 11, 2024@07:52:06 AUTHOR: ZACK GILMORE COSIGNER: URGENCY: STATUS: COMPLETED VISIT #2 SUBJECTIVE: Nilton stated he is stiff in his back and legs today. He was active working in his house yesterday. He was painting in one room and moving his exotic pets up and down the stairs. The [place] stated everything was good except for one vertebra that was sore in the T/L area he pointed to. MOVEMENT/POSTURE: The ambulates without difficulty or the need for assistance. SEGMENTAL DYSFUNCTION: Joint dysfunction was noted in the SI joint, lumbar and thoracic spine. PALPATION: Tight and tender muscles of the lumbar and thoracic paraspinals. LUMBAR ACTIVE RANGE OF MOTION: Flexion 80 degrees stiff, Extension 20 degrees pinch, Lateral Bending 20 degrees bilaterally with contralateral stretching, Rotation 25 degrees bilaterally. ASSESSMENT: The patient does have a mechanical form of low back pain with associated segmental dysfunction of the SI joint, lumbar, and thoracic regions complicated by degenerative changes in the lumbar spine. The is a candidate for the Whole Health Program but my prognosis remains guarded based on the chronic nature of his condition, the moderate DJD and spurring he noted from his X-Ray findings. PLAN: The patient was given a review of findings following the exam. The benefits, risks and alternatives to childbirth and infant care teacher were discussed with the patient, along with an opportunity to ask questions. Patient then gave an informed consent to treatment. Plan of care will consist of 4-6 visits consisting of chiropractic manipulation with an incremental increase in home exercise depending on the patients response. The patient agrees to this plan. Treatment lumbar spine manual flexion/distraction felt good. I did vibratory massage with the ANDalyze massage instrument on the tight muscles of the lumbar and thoracic regions. I did spinal manipulation manually to the SI joint/lumbar (side posture) and thoracic (anterior - posterior). I stretched his lumbar/thoracic region in the side lying position. Therapeutic Exercise: I demonstrated and Patient performed and instructed in bridges to increase glute/core strength 15x/day work into 3 sets. The patient reported feeling better following his treatment. HOME CARE: Bridge exercise 15x/day work into 3 sets. knee to chest, glute and hamstring stretches 5x/day 20 second hold. ice if sore. sit with feet flat on the floor. place a pillow under the knees if lying on back. Place a pillow in between the knees if lying on side. RTC: 05/25/24 /rober/ Zack Gilmore D.C. Chiropractic Physician-Fee Basis Signed: 05/11/2024 08:33 ZACK GILMORE [facility]
--- OUTSIDE RECORDS SUMMARY | 2024-10-11 15:36 | XMS_ITS ---
Author Name Department of Vetera Affairs (MD) Organization [facility] (MD) Address [address] [place] [address] Care Team Providers Care Academic Coach Name Role Phone GRETA MEYER Primary Care Provider Unavailabl e Insurance [...] PRESCRIPT ION PRESTON DACOSTA Mar 24, 2023 [id number] [phone] JUWAN,CYNDI ID PATIENT UMR PREFERRED PROVIDER ORGANIZAT ION (PPO) PRESTON DACOSTA HEALT H Mar 24, 2020 [id number] [phone] JUWAN,CYNDI ID PATIENT Selected Encounter This section includes the information on record at MD for the Encounter. Date/Time Encounter Type Encounter Description Reason Provider Source Feb 06, 2024 03:00 PM Outpatient Encounter PRIMARY CARE/MEDICINE ICD-10-CM Z00.00 Encntr for general adult medical exam w/o abnormal findings GRETA MEYER Anselmo Encounter Template Text not used by MD Assessments - Encounter Diagnoses This section includes the primary and secondary diagnoses documented for the Encounter. Date/Time Primary/Secondary Diagnosis Diagnosis Name Provider Source Feb 10, 2024 08:29 AM PRIMARY Encntr for general adult medical exam w/o abnormal findings GRETA MEYER [facility] Feb 10, 2024 08:29 AM SECONDARY Anesthesia of skin GRETA MEYER [facility] Feb 10, 2024 08:29 AM SECONDARY Dry eye syndrome of bilateral lacrimal glands GRETA MEYER [facility] Feb 10, 2024 08:29 AM SECONDARY Elevated blood-pressure reading, w/o diagnosis of htn GRETA MEYER [facility] Feb 10, 2024 08:29 AM SECONDARY Hyperlipidemia, unspecified GRETA MEYER [facility] Feb 10, 2024 08:29 AM SECONDARY Low back pain, unspecified GRETA MEYER [facility] Feb 10, 2024 08:29 AM SECONDARY Other allergic rhinitis GRETA MEYER [facility] Feb 10, 2024 08:29 AM SECONDARY Pain in left shoulder GRETA MEYER [facility] Feb 10, 2024 08:29 AM SECONDARY Pain in right knee GRETA MEYER [facility] Feb 10, 2024 08:29 AM SECONDARY Pain in unspecified toe(s) GRETA MEYER [facility] Plan of Treatment: Future Appointments (+ 6 months) and Future Tests (+/- 45 days) The Plan of Treatment section includes future care activities for the patient from all MD treatmentcilities. This section includes future appointments and future orders which are active, pending or scheduled. Future Appointments This section includes appointments that were scheduled to occur 6 months from the date of the Encounter, up to a maximum of 20 appointments. The data comes from all [facility] facilities. Appointment Date/Time Appointment Type Appointme nt Facility Name May 04, 2024 09:00 AM AMBULATORY - NONE [facility] May 11, 2024 08:00 AM AMBULATORY - NONE [facility] May 25, 2024 08:00 AM AMBULATORY - NONE [facility] Jun 01, 2024 08:00 AM AMBULATORY - NONE [facility] Lab Results: +/- 30 days of the encounter This section includes the Chemistry and Hematology Lab Results on record with MD for the patient. Radiology Reports and Pathology Reports are provided separately, in subsequent sections. Lab Results This section contains the Chemistry/Hematology Results that were resulted 30 days before or 30 daysafter the date of the Encounter. Date/Time Source Result Type Result - Unit Interpretation Reference Range Specimen Type Comment Feb 09, 2024 08:55 AM [facility] COMPREHENSIVE METABOLIC PANEL PLASMA Specimen Type: PLASMA Comment: No hemolysis noted. Ordering Provider: GRETA MEYER Report Released Date/Time: Feb 06, 2024 03:27 PM Reporting Lab: [address] [address] Performing Lab: [address] [address] CREATININE 1.16 mg/dL 0.7-1.3 UREA NITROGEN 14.1 mg/dL 9.0-25.0 GLUCOSE 96 mg/dL 72-99 SODIUM 142 meq/L 136-145 POTASSIUM 4.8 meq/L 3.5-5 CHLORIDE 107 meq/L 98-107 CARBON DIOXIDE 23 meq/L 22-31 CALCIUM 9.6 mg/dL 8.4-10.4 PROTEIN 7.3 g/dL 6-8.6 ALBUMIN 4.4 g/dL 3.4-5 TOTAL BILIRUBIN 0.3 mg/dL 0.2-1.2 ALKALINE PHOSPHATASE 50 U/L 40-150 AST/SGOT 26 U/L 5-34 ALT/SGPT 35 U/L 8-40 EGFR (CKD-EPI 2020) 82.2 >60 Feb 09, 2024 08:55 AM [facility] CBC BLOOD Specimen Type: BLOOD No comment entered. Ordering Provider: GRETA MEYER Report Released Date/Time: Feb 06, 2024 03:27 PM Reporting Lab: [address] [address] Performing Lab: [address] [address] WBC 5.0 10*3/uL 3.6-11.2 RBC 5.28 10*6/uL 4.10-5.70 HGB 15.5 g/dL 13.1-16.8 HCT 46.5 38.2-48.4 MCV 88.1 fL 80.0-100.0 MCH 29.4 pg 27.0-34.0 MCHC 33.3 g/dL 33.0-36.0 PLT 238 10*3/uL 150-400 MPV 11.7 fL H 7.5-11.2 RDW 13.1 11.8-15.1 LYMPHOCYTES, AUTO % 32 MONOCYTES, AUTO % 8 NEUTROPHILS, AUTO % 57 EOSINOPHILS, AUTO % 3 BASOPHILS, AUTO % 1 LYMPHOCYTES, ABSOLUTE 1.60 10*3/uL 0.77- 4.50 MONOCYTES, ABSOLUTE 0.40 10*3/uL 0.19-0. 80 NEUTROPHILS, ABSOLUTE 2.86 10*3/uL 2.10- 8.00 EOSINOPHILS, ABSOLUTE 0.13 10*3/uL 0.00- 0.60 BASOPHILS, ABSOLUTE 0.03 10*3/uL 0.00-0. 20 Feb 09, 2024 08:55 AM [facility] HGA1C BLOOD Specimen Type: BLOOD No comment entered. Ordering Provider: GRETA MEYER Report Released Date/Time: Feb 06, 2024 03:27 PM Reporting Lab: [facility] [address] [place] [phone] Performing Lab: [address] [address] HGA1C 5.4 4.0-6.0 Feb 09, 2024 08:55 AM [facility] LIPID PANEL (STL) PLASMA Specimen Type: PLASM A Comment: No hemolysis noted. Ordering Provider: GRETA MEYER Report Released Date/Time: Feb 06, 2024 03:27 PM Reporting Lab: [address] [address] Performing Lab: [address] [address] CHOLESTEROL 226 mg/dL H 0-200 TRIGLYCERIDE 220 mg/dL H 0-150 CALCULATED LDL 145 mg/dL HDL(New) 37 mg/dL L >40 Feb 09, 2024 08:55 AM [facility] VITAMIN D, 25-HYDROXY SERUM Specimen Type: SE RUM No comment entered. Ordering Provider: GRETA MEYER Report Released Date/Time: Feb 06, 2024 03:27 PM Reporting Lab: [facility] [address] [place] [phone] Performing Lab: [facility] [address] [place] [phone] VITAMIN D, 25-HYDROXY 30.0 ng/mL 30-96 Feb 09, 2024 08:55 AM [facility] TSH (MA-PB) SERUM Specimen Type: SERUM No comment entered. Ordering Provider: GRETA MEYER Report Released Date/Time: Feb 06, 2024 03:27 PM Reporting Lab: [address] [address] Performing Lab: [address] [address] TSH 0.470 u[IU]/mL 0.47-5 Feb 09, 2024 08:55 AM [facility] URIC ACID PLASMA Specimen Type: PLASM A Comment: No hemolysis noted. Ordering Provider: GRETA MEYER Report Released Date/Time: Feb 06, 2024 03:27 PM Reporting Lab: [facility] [address] [place] [phone] Performing Lab: [address] [address] URIC ACID 6.7 mg/dL 3.5-7.2 Vital Signs: All taken on the encounter date This section contains inpatient and outpatient Vital Signs collected on the date of the Encounter. Date/Time Temperature Pulse Blood Pressure Respiratory Rate SP02 Pain Height Weight Body Mass Index Source Feb 06, 2024 02:23 PM 98.1 66 132/83 18 97 4 221.4 35 [facility] Social History: Smoking Status (Most current) and Tobacco Use (All prior to encounter date) This section includes the most current, and the historical, smoking and tobacco- related health factors from the [facility] where the Encounter took place. Current Smoking Status This section includes the most current smoking, or tobacco-related health factor, from the MD facility where the Encounter took place. Date/Time Current Smoking Status Comment Elizabeth ity Feb 06, 2024 03:00 PM VA-TOBACCO USE FOR DAVEY CIGARETTES [facility] Tobacco Use History This section includes a history of the smoking, or tobacco-related health factors, that were collected on or before the date of the Encounter. The data comes from the MD facility where the Encounter took place. Date/Time Smoking Status/Tobacco Use Comment F acility Feb 06, 2024 03:00 PM VA-TOBACCO USE FOR DAVEY CIGARETTES [facility] Dec 12, 2022 02:30 PM VA-TOBACCO FORMER USER [facility] Dec 12, 2022 02:30 PM VA-TOBACCO QUIT 1 TO < 5 YRS [facility] Jul 09, 2017 03:04 PM VA-TOBACCO USE 5 TO 15 YEARS [facility] Jul 09, 2017 03:04 PM VA-TOBACCO USE ADVICE [facility] Jul 09, 2017 03:04 PM VA-TOBACCO USE 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 CELL 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 NO [facility] Jul 09, 2017 03:04 PM VA-TOBACCO USE MED NO [facility] Jul 09, 2017 03:04 PM VA-TOBACCO USE WI 30 MIN OF WAKEUP [facility] Jul 09, 2017 03:04 PM VA-TOBACCO USER EVERY DAY [facility] Jul 02, 2017 08:30 AM CURRENT TOBACCO USER [facility] Jul 02, 2017 08:30 AM CURRENT TOBACCO US ER (NOT READY TO QUIT) [facility] Jul 02, 2017 08:30 AM TOBACCO CESSATION REFERRAL DECLINED [facility] Jul 02, 2017 08:30 AM TOBACCO MEDS OFFER ED BUT DECLINED [facility] Jul 02, 2017 08:30 AM TOBACCO USER OFFERED MEDS [facility] Nov 18, 2016 09:26 AM CURRENT TOBACCO USER [facility] Oct 20, 2015 10:30 AM CURRENT TOBACCO USER [facility] Oct 20, 2015 10:30 AM TOBACCO OFFERRED P T MEDS (PROVIDER) [facility] Encounter Notes: All associated encounter notes This section contains the clinical notes associated to the Encounter. Date/Time Encounter Note(s) Provider Source Feb 17, 2024 01:08 PM PHYSICIAN LETTERS: LOCAL TITLE: TEST RESULT GENERAL LETTER STL STANDARD TITLE: PHYSICIAN LETTERS DATE OF NOTE: FEB 17, 2024@13:08 ENTRY DATE: FEB 17, 2024@13:08:27 AUTHOR: GRETA MEYER COSIGNER: URGENCY: STATUS: COMPLETED [facility] [address] [place] [address] FEB 17, 2024 NILTON ROSE [address] [place], [place] [address] Dear Nilton Rose, I would like to update you on your recent test results. LIPID PROFILE - High cholesterol and triglycerides (lipids) are risk factors for heart disease. Your cholesterol should fall between 140 and 200, and your triglycerides levels should be less than or equal to 150. HDL is the good cholesterol and should ideally be greater than 40. LDL is the bad cholesterol and optimal levels should be less than 100 (near optimal is between 100 and 129). TRIGLYCERIDE 220 H mg/dL 02/09/2024 08:55 CHOLESTEROL 226 H mg/dL 02/09/2024 08:55 HDL(New) 37 L mg/dL 02/09/2024 08:55 DIRECT LDL 147 mg/dL 12/17/2022 09:15 CALCULATED LDL 145 mg/dL 02/09/2024 08:55 DIRECT LDL 147 mg/dL 12/17/2022 09:15 These results are abnormal. Lifestyle modifications are recommended. See education below. -HDL's (high-density lipoproteins) and LDL's (low-density lipoproteins) transport cholesterol in your blood. LDLs carry cholesterol into your cells and HDLs carry it away and dispose of it in the liver, having a protective effect on your circulatory system. -HDL is good cholesterol and should be above 50. -LDL is bad cholesterol and should be less than 100 for most people including diabetics and less than 70 for people with heart disease. This level is the most important predictor of heart disease in a cholesterol panel. -Triglycerides (TG) are fatty compounds that are a combination of three (tri) fatty acids and glycerin. Body fat is made up of mostly stored triglycerides. -Triglycerides are another type of fat in the blood and should be less than 150. -Total cholesterol should be less than 200. You can improve these values by changing your diet and exercise regimen. Please review the following recommendations: -Incorporate 30-minutes of exercise with walking 5 days per week. Increasing your physical activity can help with weight management and improve your cholesterol levels. -Carefully review nutrition labels. Decrease intake of saturated fats or trans-fats. Monitor your salt intake. -Reduce your intake of sugars such as cake or candy. Additional hidden sugars are found foods such as pastries, breads, and pasta. Monitor your intake of these items as well and try not to consume on a daily basis. -Increase your intake of fresh or frozen fruits and vegetables which is preferred over canned or processed items. Canned foods have high amounts of sugar and salt. -Low fat dairy products are encouraged. -Leaner meats such as chicken or fish can have less fat that beef or pork. HEMOGLOBIN A1C - Gives us information about your diabetes (sugar or glucose) control over the past 3 months. Your target is to keep your A1C below 7 %. HGA1C 5.4 % 02/09/2024 08:55 These readings are within normal limits. CBC - A complete blood count (CBC) gives important information about the kinds and numbers of cells in the blood, especially red blood cells, white blood cells, and platelets. HGB 15.5 g/dL 02/09/2024 08:55 HEMATOCRIT 46.5 % (02/09/24 08:55) PLT 238 10*3/uL 02/09/2024 08:55 WHITE BLOOD COUNT 5.0 10*3/uL (02/09/24 08:55) These readings are within normal limits. CHEM 7 - This is important information about the current status of your kidneys, liver, and electrolyte and acid/base balance as well as of your blood sugar and blood proteins. SODIUM 142 mEq/L 02/09/2024 08:55 POTASSIUM 4.8 mEq/L 02/09/2024 08:55 CHLORIDE 107 mEq/L 02/09/2024 08:55 UREA NITROGEN 14.1 mg/dL 02/09/2024 08:55 CREATININE 1.16 mg/dL 02/09/2024 08:55 CALCIUM 9.6 mg/dL 02/09/2024 08:55 CARBON DIOXIDE 23 mEq/L 02/09/2024 08:55 GLUCOSE 96 mg/dL 02/09/2024 08:55 EGFR (CKD-EPI 2020) 82.2 02/09/2024 08:55 These readings are within normal limits. LIVER FUNCTION PANEL - These are tests for liver function: PROTEIN 7.3 g/dL 02/09/2024 08:55 ALBUMIN 4.4 g/dL 02/09/2024 08:55 TOTAL BILIRUBIN 0.3 mg/dL 02/09/2024 08:55 ALKALINE PHOSPHATASE 50 U/L 02/09/2024 08:55 AST/SGOT 26 U/L 02/09/2024 08:55 ALT/SGPT 35 U/L 02/09/2024 08:55 These readings are within normal limits. TSH - Thyroid-stimulating hormone (also known as TSH or thyrotropin) is a peptide hormone synthesized and secreted by thyrotrope cells in the anterior pituitary gland, which regulates the endocrine function of the thyroid gland. TSH 0.470 uIU/mL 02/09/2024 08:55 These readings are within normal limits. VITAMIN D - Helps promote the proper utilization of calcium and phosphorus, thereby producing proper bone maintenance. VITAMIN D, 25-HYDROXY 30.0 ng/mL 02/09/2024 08:55 These readings are within normal limits. Collection time: Feb 09, 2024@08:55 URIC ACID 6.7 mg/dL 3.5 - 7.2 These readings are within normal limits. If you have any questions please call your rn case manager. I look forward to seeing you at your next clinic appointment. Thank you for choosing the [facility] for your healthcare. FUTURE APPOINTMENTS: 02/09/2025 09:30 MARYB[facility]-ST CLR PACT 3 PCP Sincerely, Greta Meyer DNP, INCOME AUDITOR, BUILDING MECHANIC-C Primary Care Nurse Practitioner NILTON ROSE II, SHELBY [facility] Feb 06, 2024 03:03 PM PRIMARY CARE NOTE: LOCAL TITLE: PRIMARY CARE PROVIDER ESTABLISHED VISIT ST STANDARD TITLE: PRIMARY CARE NOTE DATE OF NOTE: FEB 06, 2024@15:03 ENTRY DATE: FEB 06, 2024@15:03:14 AUTHOR: GRETA MEYER EXP COSIGNER: URGENCY: STATUS: COMPLETED PRIMARY CARE PROVIDER ESTABLISHED VISIT ST Has ADDENDA REASON FOR VISIT/CHIEF COMPLAINT: Evaluation and management of chronic medical conditions/My scheduled visit HPI: Patient is a 38 year old WHITE MALE who presents to the clinic for evaluation and management of chronic medical conditions. Patient denies any recent ED visits or hospitalizations. Patient goes by Jay. Private providers: -Private PCP Dr. Knight at [facility]. -Private orthopedics surgeon Dr. Louis Vasquez in [place], [place]. #Elevated blood pressure without the diagnosis of HTN: -Medications: None. -Reports having blood pressure machine at home. -Blood pressure readings at home: <130/80. -Denies CP, SOB, heart palpitations, headaches, blurred vision, dizziness/lightheadedness. #HLD: -Medication: None. #Left shoulder pain: -Chronic. -Patient has associated left hand numbness (4th and 5th fingers). -Patient had PT for this in 2022 in the private sector. -Patient had EMG completed in 2022 in the private sector. -Patient reports he is scheduled for surgery for cubital tunnel 02/12/24 in the private sector. Patient reports he has three lipomas on his left arm that they will remove during the surgery as well. #LBP: -Chronic. -Duration: Constant. -Character: Throbbing. -Aggravating factors: Unknown. -Relieving factors: Unknown. -Medications: Diclofenac and Methocarbamol. -Treatments: Has trialed chiropractor historically. -Injury: Denies. -Imaging: Has obtained historically. 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 -Denies bowel or bladder incontinence and saddle anesthesia. -Patient reports being evaluated by private orthopedics for this in 2023 with no surgical interventions recommended at this time. -Patient requesting MD chiropractor consult. #Right knee pain/OA: -S/p surgery with hardware historically in approx. 2013. -Medication: Diclofenac and Methocarbamol. #Allergic rhinitis: -Medication: Nasonex. -Controlled per patient. #Great big toe pain: -Chronic. -Patient reports his father has gout and would like to be checked for this. #Dry eyes: -Denies concerns today. SOURCE(S) OF HISTORY: Patient PAST MEDICAL HISTORY: 1) Right knee pain 2) Insomnia 3) Allergic rhinitis 4) Low back pain 5) Elevated blood-pressure reading without diagnosis of hypertension 6) Pain of left shoulder joint 7) Numbness of hand 8) Dry eyes 9) History of SARS-CoV-2 10) Hyperlipidemia 11) Exposure to potentially hazardous substance SOCIAL HISTORY: Tobacco: Former smoker. Quit approx. 2019. 1-1.5ppd. smoked for 15-20 yrs. Alcohol: Socially. Illicit: Denies. ALLERGIES: Patient has answered NKA ALLERGY REVIEW: Allergy list reviewed and remains current. MEDICATIONS: Active and Recently Outpatient Medications (excluding Supplies): Active Outpatient Medications Status 1) DICLOFENAC NA 75MG EC TAB TAKE ONE TABLET BY MOUTH ACTIVE TWICE DAILY NEEDED FOR PAIN - TAKE WITH FOOD 2) METHOCARBAMOL 750MG TAB TAKE 1 TABLET BY MOUTH TWICE ACTIVE DAILY NEEDED FOR MUSCLE RELAXANT REVIEW OF SYSTEMS: Constitutional: Denies weight loss, fever, chills. Ears, Nose, Mouth, Throat: Denies nasal drainage or sore throat. Denies dizziness. Endocrinology: Denies heat or cold intolerance, polydipsia, polyuria, or polyphagia. Cardiovascular: Denies chest pain, palpitations, or dizziness. Respiratory: Denies cough or shortness of breath. ABD/GI: Denies abdominal pain, nausea, vomiting, constipation, diarrhea or incontinence. Musculoskeletal/Extremities : Denies edema. /CHEMICAL TECHNICIAN: Denies frequency, hesitancy, urgency, or hematuria. Psychology: Denies insomnia or SI/HI. Denies anxiety or depression. Neurology: Denies AMADOR, tremors, neuropathy, or seizures. Skin: Denies rashes, skin lesions. PHYSICAL EXAMINATION: VITALS (most recent, as listed in the electronic record): Temperature: 98.1 F [36.7 C] (02/06/2024 14:23) BP: 132/83 (02/06/2024 14:23) Pulse: 66 (02/06/2024 14:23) Resp: 18 (02/06/2024:) PulsOx: 97% (02/06/2024 14:) Pain: 4 (02/06/2024 14:) Weight: Measurement DT WEIGHT LB(KG)[BMI] 02/06/2024 14: 221.4(100.43)[35*] HEENT: EOMI, PERRLA, Moist mucous membranes. No Scleral icterus or cervical lymphadenopathy. Lungs: Clear to auscultation bilaterally. No accessory muscle use. Cardiovascular: Regular rate and rhythm. No murmur. No JVD. Abdomen: Soft, nontender and non-distended. No palpable masses. Positive bowel sounds in all four quadrants. Extremities: No edema. Nontender. Full ROM to all joints. Gait steady. : Deferred. Neurologic: No focal neurological deficits. Psychiatric: Appropriate mood and affect. Skin: Skin warm, dry and intact. No lesions or rashes noted. DATA REVIEW: HGA1C 5.4 % 12/17/2022 09:15 Lipid Panel: TRIGLYCERIDE 318 H mg/dL 12/17/2022 09:15 CHOLESTEROL 208 H mg/dL 12/17/2022 09:15 HDL(New) 28 L mg/dL 12/17/2022 09:15 DIRECT LDL 147 mg/dL 12/17/2022 09:15 CALCULATED LDL comment mg/dL 12/17/2022 09:15 CMP: SODIUM 140 mEq/L 12/17/2022 09:15 POTASSIUM 4.3 mEq/L 12/17/2022 09:15 CHLORIDE 105 mEq/L 12/17/2022 09:15 UREA NITROGEN 16.8 mg/dL 12/17/2022 09:15 CREATININE 1.21 mg/dL 12/17/2022 09:15 CALCIUM 9.5 mg/dL 12/17/2022 09:15 PROTEIN 7.1 g/dL 12/17/2022 09:15 ALBUMIN 4.4 g/dL 12/17/2022 09:15 ALKALINE PHOSPHATASE 42 U/L 12/17/2022 09:15 ALT/SGPT 30 U/L 12/17/2022 09:15 AST/SGOT 26 U/L 12/17/2022 09:15 TOTAL BILIRUBIN 0.5 mg/dL 12/17/2022 09:15 CARBON DIOXIDE 26 mEq/L 12/17/2022 09:15 GLUCOSE 97 mg/dL 12/17/2022 09:15 EGFR (CKD-EPI 2020) 78.6 12/17/2022 09:15 CBC: WBC 4.7 10*3/uL 12/17/2022 09:15 RBC 5.19 10*6/uL 12/17/2022 09:15 HGB 14.8 g/dL 12/17/2022 09:15 HCT 45.0 % 12/17/2022 09:15 MCV 86.7 fL 12/17/2022 09:15 MCH 28.5 pg 12/17/2022 09:15 MCHC 32.9 L g/dL 12/17/2022 09:15 RDW 12.8 % 12/17/2022 09:15 PLT 216 10*3/uL 12/17/2022 09:15 MPV 11.6 H fL 12/17/2022 09:15 NEUTROPHILS, AUTO % 57 % 12/17/2022 09:15 LYMPHOCYTES, AUTO % 33 % 12/17/2022 09:15 MONOCYTES, AUTO % 7 % 12/17/2022 09:15 EOSINOPHILS, AUTO % 3 % 12/17/2022 09:15 BASOPHILS, AUTO % 1 % 12/17/2022 09:15 NEUTROPHILS, ABSOLUTE 2.66 10*3/uL 12/17/2022 09:15 LYMPHOCYTES, ABSOLUTE 1.54 10*3/uL 12/17/2022 09:15 MONOCYTES, ABSOLUTE 0.35 10*3/uL 12/17/2022 09:15 EOSINOPHILS, ABSOLUTE 0.12 10*3/uL 12/17/2022 09:15 BASOPHILS, ABSOLUTE 0.04 10*3/uL 12/17/2022 09:15 PSA: No PSA EO data found Result: Acceptable Health maintenance: -Declines immunizations today. Immunization Series Date Facility Reaction Info COVID-19 (PFIZER), MRNA, LNP-S, * 2 07/08/2020 [facility]* <C> COVID-19 (PFIZER), MRNA, LNP-S, * 1 06/17/2020 [facility]* <C> INFLUENZA, UNSPECIFIED FORMULATI* work TDAP 10/20/2015 [facility] <C> Colonoscopy: Patient denies family history of colon cancer. PSA: Patient denies family history of prostate cancer. Eye exam: Eye clinic contact information given. Labs ordered: CBC, CMP, A1C, Lipid panel, Vitamin D, TSH and Uric acid (will obtain at a later date fasting). ASSESSMENT/PLAN: Annual visit: -Routine labs reviewed. -Preventative health screenings reviewed. -Recommend regular eye exams. -Discussed Fall Safety. -Continue wearing mask in public and wash hands frequently. -Immunizations reviewed. Elevated blood pressure without the diagnosis of HTN: -Discussed importance of regular exercise and/or physical activity in the control of blood pressure. -Discussed low sodium diet w/ <2 g daily. -Discussed avoidance of caffeine. -Discussed appropriate sleep hygiene and quality with >6 hours of uninterrupted sleep. -Self-monitor BP at home and report readings consistently above goal of <130/80. HLD: -Reviewed lifestyle modifications including participating in a low fat/low cholesterol diet. -Dietitian contact information given. Left shoulder pain: -Whole health contact information given. -Evaluation and management per private orthopedics. LBP: -Continue medication regimen. Discontinue Methocarbamol. Begin Cyclobenzaprine. Proper use and side effects reviewed. Begin Diclofenac gel. Proper use and side effects reviewed. Reviewed with to not take Diclofenac gel with Diclofenac PO. Begin Tylenol OTC. Proper use and side effects reviewed. Patient plans to alternate Diclofenac PO one day and then take Diclofenac gel and Tylenol the next. Patient declines PPI therapy for chronic Diclofenac PO use today. -Whole health contact information given. -Evaluation and management per private orthopedics. Right knee pain/OA: -Continue medication regimen. Begin Cyclobenzaprine. Proper use and side effects reviewed. Begin Diclofenac gel. Proper use and side effects reviewed. Reviewed with to not take Diclofenac gel with Diclofenac PO. Begin Tylenol OTC. Proper use and side effects reviewed. Patient plans to alternate Diclofenac PO one day and then take Diclofenac gel and Tylenol the next. Patient declines PPI therapy for chronic Diclofenac PO use today. -Whole health contact information given. Allergic rhinitis: -Continue medication regimen. -Educated to limit exposures to allergens, wash bedding in hot water weekly, decrease humidity in the home, and to avoid firsthand or secondhand smoke. Great big toe pain: -Uric acid level ordered. -Begin Diclofenac gel. Proper use and side effects reviewed. Dry eyes: -Denies concerns today. RETURN TO CLINIC: 1 year or earlier as needed. SUMMARY STATEMENT: Plan of care has been discussed with including expected therapeutic benefits and potential side effects of prescribed medication and treatments. verbalizes understanding and is in agreement with the plan of care. Patient was instructed to keep all scheduled appointments and contact cash applications manager for any additional problems. 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 Handwritten corrections, additions and/or deletions were made to the list, as appropriate. Corrected Outpatient Medication List was provided to the patient/caregiver. /rober/ Greta Meyer DNP, MOISÉS, ZECHARIAH-C Primary Care Nurse Practitioner Signed: 02/10/2024 08:29 02/17/2024 ADDENDUM STATUS: COMPLETED Labs reviewed from 02/09/24: CBC, CMP, A1C, Lipid panel, Vitamin D, TSH and Uric acid (fasting). Will mail result letter to patient. #HLD: TRIGLYCERIDE 220 H mg/dL 02/09/2024 08:55 CHOLESTEROL 226 H mg/dL 02/09/2024 08:55 HDL(New) 37 L mg/dL 02/09/2024 08:55 CALCULATED LDL 145 mg/dL 02/09/2024 08:55 -ASCVD risk 2.3%. -Recommend lifestyle modifications. /rober/ Greta Meyer DNP, MOISÉS, BUILDING MECHANIC-C Primary Care Nurse Practitioner Signed: 02/17/2024 13:08 [facility] Feb 06, 2024 02:56 PM NURSING NOTE: LOCAL TITLE: V15 PACT FACE TO FACE NOTE ST STANDARD TITLE: NURSING NOTE DATE OF NOTE: FEB 06, 2024@14:56 ENTRY DATE: FEB 06, 2024@14:56:38 AUTHOR: KARINA MARCIAL COSIGNER: URGENCY: STATUS: COMPLETED Provider Visit: Patient Identifiers : Full Name Date of Reason for visit: Established Follow-Up Mode of Arrival: Ambulatory Allergy Review: Patient has answered NKA Allergy list reviewed and remains current. Recent Vital Signs: Temperature: 98.1 F [36.7 C] (02/06/2024 14:23) Pulse: 66 (02/06/2024 14:23) Respiration: 18 (02/06/2024 14:23) B/P: 132/83 (02/06/2024 14:23) Pain: 4 (02/06/2024 14:23) Wt: 221.4 lb [100.43 kg] (02/06/2024 14:23) Ht: 67 in [170.2 cm] (01/08/2019 15:02) BMI: 34.7 POX: 97% (02/06/2024 14:23) Would you like to discuss any personal problem, family problem, alcohol use, drug use, or a mental or emotional illness? No My [facility] ([facility]), please select appointment type: Face to face: Yes- Done Contact provided Primary Care phone number and encouraged to call if any questions or concerns. Review that after hours nurse line [phone] and emergency room are available 14/10 for patient use. Contact verbalized good understanding. Suicide Screen - V: C-SSRS Screening [place] Suicide Severity Rating Scale (C-SSRS) screener 1. Over the past month, have you wished you were or wished you could go to sleep and not wake up? No 2. Over the past month, have you had any actual thoughts of killing yourself? No 3. Over the past month, have you been thinking about how you might do this? Response not required due to responses to other questions. 4. Over the past month, have you had these thoughts and had some intention of acting on them? Response not required due to responses to other questions. 5. Over the past month, have you started to work out or worked out the details of how to kill yourself? Response not required due to responses to other questions. 6. If yes, at any time in the past month did you intend to carry out this plan? Response not required due to responses to other questions. 7. In your lifetime, have you ever done anything, started to do anything, or prepared to do anything to end your life (for example, collected pills, obtained a gun, gave away valuables, went to the roof but didn't jump)? No 8. If YES, was this within the past 3 months? Response not required due to responses to other questions. Alcohol Use Screen (AUDIT-C) - V: Alcohol Screen: SCREEN FOR ALCOHOL (AUDIT-C) An alcohol screening test (AUDIT-C) was negative (score=1). 1. How often did you have a drink containing alcohol in the past year? Consider a drink to be a 12 ounce can or bottle of regular beer, 8 ounces of malt liquor, a 5 ounce glass of table wine, or a 1.5 ounce shot of liquor (like scotch, gin, or vodka). Monthly or less 2. How many drinks containing alcohol did you have on a typical day when you were drinking in the past year? Zero drinks 3. How often did you have six or more drinks on one occasion in the past year? Never Depression Screening - V: Perform PHQ-2 A PHQ-2 screen was performed. The score was 0 which is a negative screen for depression. Over the past two weeks, how often have you been bothered by the following problems? 1. Little interest or pleasure in doing things Not at all 2. Feeling down, depressed, or hopeless Not at all Homelessness/Food Insecurity Screen - DI,L,N,P,PH,PS,S,U: In the past 2 months, have you been living in stable housing that you own, rent, or stay in as part of a household? Yes - Living in stable housing. Are you worried or concerned that in the next 2 months you may NOT have stable housing that you own, rent, or stay in as part of a household? No - Not worried about housing near future The reports the following: Within the past 12 months, you worried whether your food would run out before you got money to buy more. Never true Within the past 12 months, the food you bought just didn't last and you didn't have money to get more. Never true Tobacco Use Screening - U,L,N,S,PS,M,DE,PH,P: The patient is a former cigarette smoker. The patient has never used other types of tobacco. Influenza Immunization - L,N,P,PH,U: The patient has received the seasonal influenza vaccine for the current season at another location. Documented: INFLUENZA, UNSPECIFIED FORMULATION Historical Date Administered: Dec 2023 Exact date unknown Outside Location: work Information Source: FROM PATIENT'S RECALL COVID-19 Immunization - L,N,P,PH,U: Refused Pfizer Monovalent COVID-19 vaccine Immunization: COVID-19 (PFIZER), MRNA, LNP-S, PF, EDDIE-SUCROSE, 30 MCG/0.3 ML (AGES 12+ YEARS) Refusal Reason: PATIENT DECISION Patient refuses all immunization(s) in the COVID-19 group Date Documented: 02/06/24 15:00 /rober/ KARIAN MARCIAL LPN LICENSED PRACITCAL NURSE Signed: 02/06/2024 15:00 KARINA MARCIAL [facility]
--- OUTSIDE RECORDS SUMMARY | 2024-10-11 15:36 | XMS_ITS | Encounter Summary ---
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 Date/Time Encounter Type Encounter Description Reason Provider Source May 25, 2024 08:00 AM CHIROPRACT MANJ 3-4 [employer] GR[employer]ER ICD-10-CM M54.50 Low back pain, unspecified SUNI GILMORE Encounter Template Text not used by [facility] Assessments - Encounter Diagnoses This section includes the primary and secondary diagnoses documented for the Encounter. Date/Time Primary/Secondary Diagnosis Diagnosis Name Provider Source May 25, 2024 09:05 AM PRIMARY Low back pain, unspecified ZACK GILMORE [facility] May 25, 2024 09:05 AM SECONDARY Pain in thoracic spine ZACK GILMORE [facility] Plan of Treatment: Future Appointments (+ 6 months) and Future Tests (+/- 45 days) The Plan of Treatment section includes future care activities for the patient from all [place] treatmentfacilities. This section includes future appointments and future orders which are active, pending or scheduled. Future Appointments This section includes appointments that were scheduled to occur 6 months from the date of the Encounter, up to a maximum of 20 appointments. The data comes from all [place] treatment facilities. Appointment Date/Time Appointment Type Appointme nt Facility Name Jun 01, 2024 08:00 AM AMBULATORY - NONE [facility] Encounter Notes: All associated encounter notes This section contains the clinical notes associated to the Encounter. Date/Time Encounter Note(s) Provider Source May 25, 2024 07:38 AM CHIROPRACTIC NOTE: LOCAL TITLE: CHIROPRACTIC [facility] STANDARD TITLE: CHIROPRACTIC NOTE DATE OF NOTE: MAY 25, 2024@07:38 ENTRY DATE: MAY 25, 2024@07:38:52 AUTHOR: ZACK GILMORE EXP COSIGNER: URGENCY: STATUS: COMPLETED VISIT #3 SUBJECTIVE: [place] stated he has been feeling pretty good overall. He has one little catch in the left lower back. The lower back has been stiff but not hurting. He tends to lean over to stretch and will get a pop that will last him for a few hours to days. The stated he is going to the gym and trying to strengthen his back. He has not been doing the exercises I gave him since he is going to the gym. MOVEMENT/POSTURE: The ambulates without difficulty or the need for assistance. SEGMENTAL DYSFUNCTION: Joint dysfunction was noted SI joint, lumbar and thoracic spine. PALPATION: Tight and tender muscles of the lumbar and thoracic paraspinals. LUMBAR ACTIVE RANGE OF MOTION: Flexion 90 degrees stiff, Extension 15 degrees pinch central lumbosacral, Lateral Bending 20 degrees bilaterally, stiff with both directions, Rotation 25 bilaterally. ASSESSMENT: The patient does have a [...] exam. The benefits, risks and alternatives to anesthesiologist and critical care were discussed with the patient, along with an opportunity to ask questions. Patient then gave an informed consent to treatment. Plan of care will consist of 4-6 visits consisting of chiropractic manipulation with an incremental increase in home exercise depending on the patients response. The patient agrees to this plan. Treatment manual flexion/distraction of the lumbar spine was well tolerated. I used the StyleHaulice massage instrument to help decrease the tight paraspinals in the lumbar and thoracic regions. Spinal manipulation was performed manually, to the SI joint/lumbar spine (side posture) and thoracic spine (anterior to posterior). The lower back felt about the same so I used table drops on the SI joint and lumbar spine. I adjusted the SI joint/lumbar spine with the IQ adjusting instrument. He liked this the best. Therapeutic Exercise: hip flexor stretch for the right side. [place] should be kneeling on the ground, move the left leg with hip and knee bent a little forward. lean the upper body forward till he feels the stretch in the right hip flexor. Place hands above the head and lean to the left I told the to find a hyperextension bench at the gym and try to position himself on his side and gently lean over to help stretch his side. He can try stretching on a exercise ball too. He should be careful and keep himself braced on the ball so his does not fall off of it. The patient reported feeling better following his treatment. HOME CARE: I remined him to do the exercises [...] knees if lying on side. RTC: 06/01/24 /es/ Zack Gilmore D.C. Chiropractic Physician-Fee Basis Signed: 05/25/2024 09:05 ZACK GILMORE [facility]
--- OUTSIDE RECORDS SUMMARY | 2024-10-11 15:36 | XMS_ITS | Continuity of Care Document ---
Author Name [facility] Organization [facility] Care Team Providers Care Computer Operations Specialist Name Role Phone [facility] Unavailable Unavailable Problems Combined list of problems from Department of Defense and Veterans Affairs facilities. It does not include entries that were removed or entered in error. Problem Status Onset Date Problem Type Date of Resolution Comments Source OSTEOARTHRITIS LOCALIZED PRIMARY - KNEE RIGHT Active Condition DoD lump in / on the skin Active Condition DoD tobacco use Active Condition [facility] visit for: routine eye exam Inactive Condition DoD visit for: laboratory Inactive Condition DoD visit for: screening mental / developmental disorders Inactive Condition [facility] visit for: screening exam genitourinary disorders Inactive Condition [facility] Patient Education - Dietary Active Condition DoD RHINITIS Active Condition [facility] Vaccines Prophylactic Need Against Influenza Inactive Condition DoD ANKLE SPRAIN Inactive Condition DoD ankle joint pain Active Condition DoD Patient Education Active Condition DoD NORMAL EXAMINATION Inactive Condition Do D visit for: request expert evidence Inactive Condition 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 visit for: screening exam Inactive Condition DoD joint pain, localized Inactive Condition [facility] nasal passage blockage (stuffiness) Active Condition [facility] cough Active Condition DoD NICOTINE DEPENDENCE Active Condition Do D Need For Vaccination Hepatitis B Active Condition DoD Need For Vaccination Hepatitis A Active Condition [facility] Patient Counseling: Active Condition Do D Other Physical Therapy Active Condition DoD KNEE SPRAIN CRUCIATE LIGAMENT ANTERIOR RIGHT Active Condition DoD KNEE SPRAIN CRUCIATE LIGAMENT ANTERIOR Active Condition DoD joint pain, localized in the knee Active Condition [facility] Vaccines Prophylactic Need Against Viral Diseases Inactive Condition DoD Vaccines Prophylactic Need Active Condition DoD Vaccines Prophylactic Need Against Combinations Of Diseases Active Condition [facility] Vaccines Prophylactic Need Against Bacterial Diseases Active Condition [facility] visit for: services physical Active Condition DoD visit for: ears / hearing exam Active Condition [facility] ASSESSMENT OF PATIENT CONDITION WORK-RELATED Inactive Condition [facility] visit for: screening exam pulmonary tuberculosis Inactive Condition [facility] Allergic rhinitis Active Condition . [facility] Dry eyes Active Condition . [facility] Elevated blood-pressure reading without diagnosis of hypertension Active Condition . [facility] Exposure to potentially hazardous substance Active Condition [facility] Hyperlipidemia Active Condition [facility] Low back pain Active Condition [facility] Numbness of hand Active Condition [facility] Pain of left shoulder joint Active Condition . [facility] Right knee pain Active Condition [facility] Toe pain Active Condition [facility] History of SARS-CoV-2 Inactive Condition 02/10/2024 [facility] Insomnia Inactive Condition 02/10/2024 [facility] Diagnosis: ICD-10-CM M54.50 Low back pain, unspecified Active Diagnosis [facility] Diagnosis: ICD-10-CM M54.51 Vertebrogenic low back pain Active Diagnosis [facility] Diagnosis: ICD-10-CM Z00.00 Encntr for general adult medical exam w/o abnormal findings Active Diagnosis [facility] Medications Combined list of outpatient medications from Department of Defense and [facility] Affairs facilities.Medications provided include 1) outpatient medications from the last 15 months, and 2) patient-reported medications. Medication Details Route Status Patient Instructions Prescription Expires Prescription Number Last Dispense Date Ordering Provider Order Date Order Qty Source ACETAMINOPH EN TAB TAKE BY MOUTH FOUR TIMES A DAY NEEDED ORAL ACTIVE STEPHON MEYER LBY R 2023 [facility] CYCLOBENZAP RINE HCL 10MG TAB TAKE ONE TABLET BY MOUTH THREE TIMES A DAY NEEDED FOR MUSCLE SPASM MAY CAUSE DROWSINE SS. DO NOT DRINK ALCOHOL WHILE TAKING THIS MEDICATI ON. ORAL ACTIVE 02/06/2025 [id number] STEPHON MEYER LBY R 2023 270 [facility] DICLOFENAC NA 1% GEL,TOP APPLY 4 GM TO AFFECTED AREA(S) FOUR TIMES A DAY NEEDED FOR PAIN NO MORE THAN 16 GM/DAY TO ANY LOWER EXTREMIT Y JOINT. NO MORE THAN 8 GM/DAY TO ANY UPPER EXTREMIT Y JOINT. MAX 32GM/DAY OVER ALL JOINTS.( MEASURE DOSE WITH RULER INSIDE BOX) TOPICA L ACTIVE 02/06/2025 [id number] STEPHON MEYER R 2023 100 [facility] DICLOFENAC NA 75MG TAB,EC TAKE ONE TABLET BY MOUTH TWICE DAILY NEEDED FOR PAIN - TAKE WITH FOOD ORAL ACTIVE 04/16/2025 [id number] 5 WALLACE BARBER MD 2024 180 [facility] DICLOFENAC NA 75MG TAB,EC TAKE ONE TABLET BY MOUTH TWICE DAILY NEEDED FOR PAIN - TAKE WITH FOOD ORAL DISCONT INUED 03/04/2024 [id number] 4 WALLACE BARBER MD 2022 180 [facility] METHOCARBAM OL 750MG TAB TAKE 1 TABLET BY MOUTH TWICE DAILY NEEDED FOR MUSCLE RELAXANT ORAL DISCONT INUED 03/04/2024 [id number] 4 WALLACE BARBER MD 2022 180 [facility] MOMETASONE FUROATE MONOHYDRATE 50MCG/ACTUA T SUSP,NASAL, 17GM SPRAY 1 PUFF IN NOSTRIL( S) ONCE A DAY NEEDED NASAL ACTIVE STEPHON MEYER R 2023 [facility] Allergies, Adverse Reactions, Alerts Combined list of allergies from Department of Defense and Veterans Affairs facilities. It does not include entries that were removed or entered in error. Substance Category Reaction Severity Reaction type Status Date Reported Comments Source No Known Allergies Drug allergy (disorder) active 09/22/2007 [facility] Immunizations Combined list of available immunizations from the Department of Defense and Veterans Affairs facilities. 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 Status Comments Source INFLUENZA, UNSPECIFIED FORMULATION 2023 88 complet ed HISTORICA L INFORMATI ON - FROM PATIENT'S RECALL, [facility] INFLUENZA, INJECTABLE, QUADRIVALENT, PRESERVATIVE FREE 2022 LAVERNE MARCIAL LEFT DELTO ID [id number] A 150 complet ed [facility] COVID-19 (PFIZER), MRNA, LNP-S, PF, 30 MCG/0.3 ML DOSE 2 2020 208 complet ed PFR; [id number]; 1 [facility]-19 ([employer]), MRNA, LNP-S, PF, 30 MCG/0.3 ML DOSE 1 2020 208 complet ed PFR; [id number]; 1 [facility] INFLUENZA, INJECTABLE, QUADRIVALENT, PRESERVATIVE FREE 2018 150 complet ed [facility] INFLUENZA, INJECTABLE, QUADRIVALENT, PRESERVATIVE FREE 2018 150 complet ed . [facility] INFLUENZA, SEASONAL, INJECTABLE, PRESERVATIVE FREE 2016 140 complet ed Left Deltoid [facility] TDAP 2015 115 complet ed Left Deltoid [facility] influenza, live, intranasal, quadrivalent 1 2014 WILMER MARTINEZ [id number] MedImmune[employer] Inc. (MED) complet ed influenza , live, intranasa l, quadrival ent [facility] INFLUENZA, UNSPECIFIED FORMULATION 2014 88 complet ed [facility] influenza virus vaccine, split virus (incl. purified surface antigen)-reti red CODE 1 2013 WILMER MARTINEZ [id number] [facility] complet ed influenza virus vaccine, split virus (incl. purified surface antigen)- retired CODE DoD Influenza, seasonal, injectable 1 2013 [id number] 141 [employer] (SKB) complet ed Influenza , seasonal, injectabl e [facility] influenza, live, intranasal, quadrivalent 8 2012 [id number] MedImmune, Inc. (MED) complet ed influenza , live, intranasa l, quadrival ent DoD Influenza, seasonal, injectable, preservative free 1 2011 [id number] 140 [facility] [employer] (CSL) complet ed Influenza , seasonal, injectabl e, preservat obed free [facility] influenza virus vaccine, split virus (incl. purified surface antigen)-reti red CODE 0 2011 SHILA BLAND [id number] 15 [facility] [employer] (CSL) complet ed influenza virus vaccine, split virus (incl. purified surface antigen)- retired CODE DoD influenza virus vaccine, live, attenuated, for intranasal use 1 2010 [id number] 111 A[employer]Bio[employer] Inc. (MED) complet ed influenza virus vaccine, live, attenuate d, for intranasa l use DoD anthrax vaccine 2 2010 [id number] [employer] [facility] ([facility]) complet ed anthrax vaccine DoD influenza virus vaccine, split virus (incl. purified surface antigen)-reti red CODE 1 2009 [id number] 15 Sanofi Pasteur ([facility]) complet ed influenza virus vaccine, split virus (incl. purified surface antigen)- retired CODE DoD anthrax vaccine 1 2009 [id number] [facility] ([facility]) complet ed anthrax vaccine DoD vaccinia (smallpox) vaccine 1 2009 [id number] 75 Unknown (UNK) complet ed vaccinia (smallpox ) vaccine DoD typhoid Vi capsular polysaccharid e vaccine 1 2009 [id number] Sanofi Pasteur ([facility]) complet ed typhoid Vi capsular polysacch aride vaccine DoD Novel influenza-H1N 1-09, injectable 1 2009 [id number] 127 Unknown (UNK) complet ed Novel influenza -B1L8-18, injectabl e DoD influenza virus vaccine, live, attenuated, for intranasal use 1 2008 [id number] 111 Unknown (UNK) comple t ed influenza virus vaccine, live, attenuate d, for intranasa l use DoD hepatitis A and hepatitis B vaccine 3 2008 [id number] 104 Unknown (UNK) complet ed hepatitis A and hepatitis B vaccine DoD influenza virus vaccine, live, attenuated, for intranasal use 1 2007 LYNSEY VELASCO [id number] 111 [employer]in[employer] (MED) complet ed influenza virus vaccine, live, attenuate d, for intranasa l use DoD varicella virus vaccine 2 2007 [id number] 21 Merck (MSD) complet ed varicella virus vaccine DoD hepatitis A and hepatitis B vaccine 2 2007 [id number] 104 [employer] (SKB) complet ed hepatitis A and hepatitis B vaccine DoD measles, mumps and rubella virus vaccine 1 2007 UNK 03 Unknown (UNK) Not Given measles, mumps and rubella virus vaccine DoD poliovirus vaccine, inactivated 1 2007 [id number] 10 Sanofi Pasteur (PMC) complet ed polioviru s vaccine, inactivat ed DoD influenza virus vaccine, split virus (incl. purified surface antigen)-reti red CODE 1 2007 [id number] 15 Sanofi Pasteur (PMC) complet ed influenza virus vaccine, split virus (incl. purified surface antigen)- retired CODE DoD varicella virus vaccine 1 2007 [id number] 21 Merck (MSD) complet ed varicella virus vaccine DoD hepatitis A and hepatitis B vaccine 1 2007 [id number] [id number] 104 [employer]Kline (SKB) complet ed hepatitis A and hepatitis B vaccine DoD meningococcal polysaccharid e (groups A, C, Y and W-135) diphtheria toxoid conjugate vaccine (MCV4P) 1 2007 [id number] 114 Sanofi Pasteur ([facility]MC) complet ed meningoco ccal polysacch aride (groups A, C, Y and W-135) diphtheri a toxoid conjugate vaccine (MCV4P) DoD tetanus toxoid, reduced diphtheria toxoid, and acellular pertu is vaccine, adsorbed 1 2007 [id number] 115 Sanofi Pasteur (PMC) complet ed tetanus toxoid, reduced diphtheri a toxoid, and acellular pertussis vaccine, adsorbed DoD Results Combined list of recent chemistry, hematology and other laboratory results from Department of Defense and Veterans Affairs, ranging from 15 months to all on record, depending upon the facility. Order Name Results Value Reference Range Date Interpretation Specimen Comments Source COMPREHENS OBED METABOLIC PANEL CREATININE [MASS/VOLUM E] IN SERUM OR PLASMA 1.16 mg/dL 0.7 - 1.3 02/08 Specimen Type: PLASMA Comment: No hemolysis noted. Ordering Provider: MITALI MEYER Report Released Date/Time: Feb 06, 2024 03:27 PM Reporting Lab: [facility] [address] [facility] [address] Performing Lab: [facility] [address] [facility] [address] [facility] COMPREHENS OBED METABOLIC PANEL UREA NITROGEN [MASS/VOLUM E] IN SERUM OR PLASMA 14.1 mg/dL 9.0 - 25.0 02/08 Specimen Type: PLASMA Comment: No hemolysis noted. Ordering Provider: MITALI MEYER Report Released Date/Time: Feb 06, 2024 03:27 PM Reporting Lab: [facility] [address] [facility] [phone] Performing Lab: [facility] [address] [place] [phone] [facility] COMPREHENS OBED METABOLIC PANEL GLUCOSE [MASS/VOLUM E] IN SERUM OR PLASMA 96 mg/dL 72 - 99 02/08 Specimen Type: PLASMA Comment: No hemolysis noted. Ordering Provider: MITALI MEYER Report Released Date/Time: Feb 06, 2024 03:27 PM Reporting Lab: [facility] [address] [place] [phone] Performing Lab: [address] [phone] [facility] COMPREHENS OBED METABOLIC PANEL SODIUM [MOLES/VOLU ME] IN SERUM OR PLASMA 142 meq/L 136 - 145 02/08 Specimen Type: PLASMA Comment: No hemolysis noted. Ordering Provider: MITALI MEYER Report Released Date/Time: Feb 06, 2024 03:27 PM Reporting Lab: [facility] [address] [place] [phone] Performing Lab: [facility] [address] [place] [phone] [facility] COMPREHENS OBED METABOLIC PANEL POTASSIUM [MOLES/VOLU ME] IN SERUM OR PLASMA 4.8 meq/L 3.5 - 5 02/08 Specimen Type: PLASMA Comment: No hemolysis noted. Ordering Provider: MITALI MEYER Report Released Date/Time: Feb 06, 2024 03:27 PM Reporting Lab: [facility] [address] [place] [phone] Performing Lab: [address] [phone] [facility] COMPREHENS OBED METABOLIC PANEL CHLORIDE [MOLES/VOLU ME] IN SERUM OR PLASMA 107 meq/L 98 - 107 02/08 Specimen Type: PLASMA Comment: No hemolysis noted. Ordering Provider: MITALI MEYER Report Released Date/Time: Feb 06, 2024 03:27 PM Reporting Lab: [address] [address] Performing Lab: [address] [address] [facility] COMPREHENS OBED METABOLIC PANEL CARBON DIOXIDE, TOTAL [MOLES/VOLU ME] IN SERUM OR PLASMA 23 meq/L 22 - 31 02/08 Specimen Type: PLASMA Comment: No hemolysis noted. Ordering Provider: MITALI MEYER Report Released Date/Time: Feb 06, 2024 03:27 PM Reporting Lab: [address] [phone] Performing Lab: [address] [address] [facility] COMPREHENS OBED METABOLIC PANEL CALCIUM [MASS/VOLUM E] IN SERUM OR PLASMA 9.6 mg/dL 8.4 - 10.4 02/08 Specimen Type: PLASMA Comment: No hemolysis noted. Ordering Provider: MITALI MEYER Report Released Date/Time: Feb 06, 2024 03:27 PM Reporting Lab: [address] [phone] Performing Lab: [address] [address] [facility] COMPREHENS OBED METABOLIC PANEL PROTEIN [MASS/VOLUM E] IN SERUM OR PLASMA 7.3 g/dL 6 - 8.6 02/08 Specimen Type: PLASMA Comment: No hemolysis noted. Ordering Provider: MITALI MEYER Report Released Date/Time: Feb 06, 2024 03:27 PM Reporting Lab: [address] [phone] Performing Lab: [address] [phone] COMPREHENS OBED METABOLIC PANEL ALBUMIN [MASS/VOLUM E] IN SERUM OR PLASMA 4.4 g/dL 3.4 - 5 02/08 Specimen Type: PLASMA Comment: No hemolysis noted. Ordering Provider: MITALI MEYER Report Released Date/Time: Feb 06, 2024 03:27 PM Reporting Lab: [place] [address] Performing Lab: [place] [address] [facility] [phone] [address] COMPREHENS OBED METABOLIC PANEL BILIRUBIN.T OTAL [MASS/VOLUM E] IN SERUM OR PLASMA 0.3 mg/dL 0.2 - 1.2 02/08 Specimen Type: PLASMA Comment: No hemolysis noted. Ordering Provider: MITALI MEYER Report Released Date/Time: Feb 06, 2024 03:27 PM Reporting Lab: [address] [phone] Performing Lab: [place] [address] [facility] [phone] [place] [address] COMPREHENS OBED METABOLIC PANEL ALKALINE PHOSPHATASE [ENZYMATIC ACTIVITY/VO LUME] IN SERUM OR PLASMA 50 U/L 40 - 150 02/08 Specimen Type: PLASMA Comment: No hemolysis noted. Ordering Provider: MITALI MEYER Report Released Date/Time: Feb 06, 2024 03:27 PM Reporting Lab: [place] [address] [facility] [phone] Performing Lab: [address] [phone] [place] [address] COMPREHENS OBED METABOLIC PANEL ASPARTATE AMINOTRANSF ERASE [ENZYMATIC ACTIVITY/VO LUME] IN SERUM OR PLASMA 26 U/L 5 - 34 02/08 Specimen Type: PLASMA Comment: No hemolysis noted. Ordering Provider: MITALI MEYER Report Released Date/Time: Feb 06, 2024 03:27 PM Reporting Lab: [facility] [address] [facility] [phone] Performing Lab: [facility] [address] [place] [phone] [facility] COMPREHENS OBED METABOLIC PANEL ALANINE AMINOTRANSF ERASE [ENZYMATIC ACTIVITY/VO LUME] IN SERUM OR PLASMA 35 U/L 8 - 40 02/08 Specimen Type: PLASMA Comment: No hemolysis noted. Ordering Provider: MITALI MEYER Report Released Date/Time: Feb 06, 2024 03:27 PM Reporting Lab: [address] [address] Performing Lab: [address] [phone] [place] [address] COMPREHENS OBED METABOLIC PANEL GLOMERULAR FILTRATION RATE/1.73 SQ M.PREDICTED [VOLUME RATE/AREA] IN SERUM, PLASMA OR BLOOD BY CREATININE- BASED FORMULA (CKD-EPI 2020) 82.2 60 02/08 Specimen Type: PLASMA Comment: No hemolysis noted. Ordering Provider: MITALI MEYER Report Released Date/Time: Feb 06, 2024 03:27 PM Reporting Lab: [address] [phone] Performing Lab: [address] [phone] [place] [address] CBC LEUKOCYTES [#/VOLUME] IN BLOOD BY AUTOMATED COUNT 5.0 10*3/u L 3.6 - 11.2 02/08 Specimen Type: BLOOD No comment entered. Ordering Provider: MITALI MEYER Report Released Date/Time: Feb 06, 2024 03:27 PM Reporting Lab: [facility] [address] [place] [phone] Performing Lab: [address] [address] [facility] CBC ERYTHROCYTE S [#/VOLUME] IN BLOOD BY AUTOMATED COUNT 5.28 10*6/u L 4.10 - 5.70 02/08 Specimen Type: BLOOD No comment entered. Ordering Provider: MITALI MEYER Report Released Date/Time: Feb 06, 2024 03:27 PM Reporting Lab: [address] [address] Performing Lab: [address] [phone] [facility] CBC HEMOGLOBIN [MASS/VOLUM E] IN BLOOD 15.5 g/dL 13.1 - 16.8 02/08 Specimen Type: BLOOD No comment entered. Ordering Provider: MITALI MEYER Report Released Date/Time: Feb 06, 2024 03:27 PM Reporting Lab: [address] [address] Performing Lab: [address] [phone] [place] [address] CBC HEMATOCRIT [VOLUME FRACTION] OF BLOOD 46.5 38.2 - 48.4 02/08 Specimen Type: BLOOD No comment entered. Ordering Provider: MITALI MEYER Report Released Date/Time: Feb 06, 2024 03:27 PM Reporting Lab: [address] [address] Performing Lab: [address] [phone] [place] [address] CBC MCV [ENTITIC VOLUME] BY AUTOMATED COUNT 88.1 fL 80.0 - 100.0 02/08 Specimen Type: BLOOD No comment entered. Ordering Provider: MITALI MEYER Report Released Date/Time: Feb 06, 2024 03:27 PM Reporting Lab: [address] [address] Performing Lab: [address] [phone] [place] [address] CBC MCH [ENTITIC MASS] BY AUTOMATED COUNT 29.4 pg 27.0 - 34.0 02/08 Specimen Type: BLOOD No comment entered. Ordering Provider: MITALI MEYER Report Released Date/Time: Feb 06, 2024 03:27 PM Reporting Lab: [address] [place] [address] Performing Lab: [facility] [address] [facility] [address] [facility] CBC MCHC [MASS/VOLUM E] BY AUTOMATED COUNT 33.3 g/dL 33.0 - 36.0 02/08 Specimen Type: BLOOD No comment entered. Ordering Provider: MITALI MEYER Report Released Date/Time: Feb 06, 2024 03:27 PM Reporting Lab: [facility] [address] [place] [phone] Performing Lab: [address] [address] [facility] CBC PLATELETS [#/VOLUME] IN BLOOD BY AUTOMATED COUNT 238 10*3/u L 150 - 400 02/08 Specimen Type: BLOOD No comment entered. Ordering Provider: MITALI MEYER Report Released Date/Time: Feb 06, 2024 03:27 PM Reporting Lab: [facility] [address] [place] [phone] Performing Lab: [address] [phone] [facility] CBC PLATELET MEAN VOLUME [ENTITIC VOLUME] IN BLOOD BY AUTOMATED COUNT 11.7 fL 7.5 - 11.2 02/08 H Specimen Type: BLOOD No comment entered. Ordering Provider: MITALI MEYER Report Released Date/Time: Feb 06, 2024 03:27 PM Reporting Lab: [facility] [address] [facility] [phone] Performing Lab: [address] [address] [facility] CBC ERYTHROCYTE DISTRIBUTIO N WIDTH [RATIO] BY AUTOMATED COUNT 13.1 11.8 - 15.1 02/08 Specimen Type: BLOOD No comment entered. Ordering Provider: MITALI MEYER Report Released Date/Time: Feb 06, 2024 03:27 PM Reporting Lab: [facility] [address] [place] [phone] Performing Lab: [facility] [address] [facility] [phone] [facility] CBC LYMPHOCYTES /100 LEUKOCYTES IN BLOOD BY AUTOMATED COUNT 32 02/08 Specimen Type: BLOOD No comment entered. Ordering Provider: MITALI MEYER Report Released Date/Time: Feb 06, 2024 03:27 PM Reporting Lab: [facility] [address] [facility] [phone] Performing Lab: [facility] [address] [facility] [phone] [facility] CBC MONOCYTES/1 00 LEUKOCYTES IN BLOOD BY AUTOMATED COUNT 8 02/08 Specimen Type: BLOOD No comment entered. Ordering Provider: MITALI MEYER Report Released Date/Time: Feb 06, 2024 03:27 PM Reporting Lab: [facility] [address] [facility] [phone] Performing Lab: [facility] [address] [facility] [address] [facility] CBC NEUTROPHILS /100 LEUKOCYTES IN BLOOD BY AUTOMATED COUNT 57 02/08 Specimen Type: BLOOD No comment entered. Ordering Provider: MITALI MEYER Report Released Date/Time: Feb 06, 2024 03:27 PM Reporting Lab: [facility] [address] [facility] [phone] Performing Lab: [facility] [address] [facility] [phone] [facility] CBC EOSINOPHILS /100 LEUKOCYTES IN BLOOD BY AUTOMATED COUNT 3 02/08 Specimen Type: BLOOD No comment entered. Ordering Provider: MITALI MEYER Report Released Date/Time: Feb 06, 2024 03:27 PM Reporting Lab: [facility] [address] [facility] [place] [phone] Performing Lab: [facility] [address] [facility] [place] [phone] [facility] CBC BASOPHILS/1 00 LEUKOCYTES IN BLOOD BY AUTOMATED COUNT 1 02/08 Specimen Type: BLOOD No comment entered. Ordering Provider: MITALI MEYER Report Released Date/Time: Feb 06, 2024 03:27 PM Reporting Lab: [facility] [address] [place] [phone] Performing Lab: [facility] [address] [place] [phone] [place] [address] CBC LYMPHOCYTES [#/VOLUME] IN BLOOD BY AUTOMATED COUNT 1.60 10*3/u L 0.77 - 4.50 02/08 Specimen Type: BLOOD No comment entered. Ordering Provider: MITALI MEYER Report Released Date/Time: Feb 06, 2024 03:27 PM Reporting Lab: [facility] [address] [place] [phone] Performing Lab: [facility] [address] [place] [address] [phone] CBC MONOCYTES [#/VOLUME] IN BLOOD BY AUTOMATED COUNT 0.40 10*3/u L 0.19 - 0.80 02/08 Specimen Type: BLOOD No comment entered. Ordering Provider: MITALI MEYER Report Released Date/Time: Feb 06, 2024 03:27 PM Reporting Lab: [facility] [address] [place] [phone] Performing Lab: [facility] [address] [place] [phone] [place] [address] CBC NEUTROPHILS [#/VOLUME] IN BLOOD BY AUTOMATED COUNT 2.86 10*3/u L 2.10 - 8.00 02/08 Specimen Type: BLOOD No comment entered. Ordering Provider: MITALI MEYER Report Released Date/Time: Feb 06, 2024 03:27 PM Reporting Lab: [facility] [address] [place] [phone] Performing Lab: [facility] [address] [place] [phone] [facility] CBC EOSINOPHILS [#/VOLUME] IN BLOOD BY AUTOMATED COUNT 0.13 10*3/u L 0.00 - 0.60 02/08 Specimen Type: BLOOD No comment entered. Ordering Provider: MITALI MEYER Report Released Date/Time: Feb 06, 2024 03:27 PM Reporting Lab: [facility] [address] [place] [phone] Performing Lab: [address] [phone] [facility] CBC BASOPHILS [#/VOLUME] IN BLOOD BY AUTOMATED COUNT 0.03 10*3/u L 0.00 - 0.20 02/08 Specimen Type: BLOOD No comment entered. Ordering Provider: MITALI MEYER Report Released Date/Time: Feb 06, 2024 03:27 PM Reporting Lab: [address] [phone] Performing Lab: [address] [phone] [place] [address] HGA1C HEMOGLOBIN A1C/HEMOGLO BIN.TOTAL IN BLOOD 5.4 4.0 - 6.0 02/08 Specimen Type: BLOOD No comment entered. Ordering Provider: MITALI MEYER Report Released Date/Time: Feb 06, 2024 03:27 PM Reporting Lab: [facility] [address] [place] [phone] Performing Lab: [address] [phone] [facility] LIPID PANEL (STL) CHOLESTEROL [MASS/VOLUM E] IN SERUM OR PLASMA 226 mg/dL 0 - 200 02/08 H Specimen Type: PLASMA Comment: No hemolysis noted. Ordering Provider: MITALI MEYER Report Released Date/Time: Feb 06, 2024 03:27 PM Reporting Lab: [facility] [address] [place] [phone] Performing Lab: [address] [phone] [facility] LIPID PANEL (STL) TRIGLYCERID E [MASS/VOLUM E] IN SERUM OR PLASMA 220 mg/dL 0 - 150 02/08 H Specimen Type: PLASMA Comment: No hemolysis noted. Ordering Provider: MITALI MEYER Report Released Date/Time: Feb 06, 2024 03:27 PM Reporting Lab: [address] [phone] Performing Lab: [address] [phone] [facility] LIPID PANEL (STL) CHOLESTEROL IN LDL [MASS/VOLUM E] IN SERUM OR PLASMA BY CALCULATION 145 mg/dL 02/08 Specimen Type: PLASMA Comment: No hemolysis noted. Ordering Provider: MITALI MEYER Report Released Date/Time: Feb 06, 2024 03:27 PM Reporting Lab: [address] [phone] Performing Lab: [address] [phone] [facility] LIPID PANEL (L) CHOLESTEROL IN HDL [MASS/VOLUM E] IN SERUM OR PLASMA 37 mg/dL 40 02/08 L Specimen Type: PLASMA Comment: No hemolysis noted. Ordering Provider: MITALI MEYER Report Released Date/Time: Feb 06, 2024 03:27 PM Reporting Lab: [address] [phone] Performing Lab: [address] [phone] [facility] VITAMIN D, 25-HYDROXY 25-HYDROXYV ITAMIN D3 [MASS/VOLUM E] IN SERUM OR PLASMA 30.0 ng/mL 30 - 96 02/08 Specimen Type: SERUM No comment entered. Ordering Provider: MITALI MEYER Report Released Date/Time: Feb 06, 2024 03:27 PM Reporting Lab: [address] [phone] Performing Lab: [address] [phone] [facility] TSH (MA-PB) THYROTROPIN [UNITS/VOLU ME] IN SERUM OR PLASMA 0.470 u[IU]/ mL 0.47 - 5 02/08 Specimen Type: SERUM No comment entered. Ordering Provider: MITALI MEYER Report Released Date/Time: Feb 06, 2024 03:27 PM Reporting Lab: [place] [address] Performing Lab: [address] URIC ACID URATE [MASS/VOLUM E] IN SERUM OR PLASMA 6.7 mg/dL 3.5 - 7.2 02/08 Specimen Type: PLASMA Comment: No hemolysis noted. Ordering Provider: MITALI MEYER Report Released Date/Time: Feb 06, 2024 03:27 PM Reporting Lab: [place] [phone] Performing Lab: [place] [phone] TSH (MA-PB-STL ) THYROTROPIN [UNITS/VOLU ME] IN SERUM OR PLASMA 0.422 u[IU]/ mL 0.47 - 5 12/17 L Specimen Type: SERUM No comment entered. Ordering Provider: AMADA GIL Report Released Date/Time: Dec 12, 2022 02:52 PM Reporting Lab: [address] [phone] Performing Lab: [address] [phone] [place] [address] TSH (MA-PB-STL ) THYROXINE (T4) FREE [MASS/VOLUM E] IN SERUM OR PLASMA 1.18 ng/mL 0.7 - 1.48 12/17 Specimen Type: SERUM No comment entered. Ordering Provider: AMADA GIL Report Released Date/Time: Dec 12, 2022 02:52 PM Reporting Lab: [place] [address] Performing Lab: [address] [place] [address] [facility] LIPID PANEL (STL) CHOLESTEROL [MASS/VOLUM E] IN SERUM OR PLASMA 208 mg/dL 0 - 200 12/17 H Specimen Type: PLASMA Comment: LDL calculation invalid when Triglyceride exceeds 250 mg/dl No hemolysis noted. Ordering Provider: AMADA GIL Report Released Date/Time: Dec 12, 2022 02:52 PM Reporting Lab: [address] [phone] Performing Lab: [address] [phone] [facility] LIPID PANEL (STL) TRIGLYCERID E [MASS/VOLUM E] IN SERUM OR PLASMA 318 mg/dL 0 - 150 12/17 H Specimen Type: PLASMA Comment: LDL calculation invalid when Triglyceride exceeds 250 mg/dl No hemolysis noted. Ordering Provider: AMADA GIL Report Released Date/Time: Dec 12, 2022 02:52 PM Reporting Lab: [address] [address] Performing Lab: [address] [phone] [facility] LIPID PANEL (L) CHOLESTEROL IN LDL [MASS/VOLUM E] IN SERUM OR PLASMA BY CALCULATION commen tmg/dL 12/17 Specimen Type: PLASMA Comment: LDL calculation invalid when Triglyceride exceeds 250 mg/dl No hemolysis noted. Ordering Provider: AMADA GIL Report Released Date/Time: Dec 12, 2022 02:52 PM Reporting Lab: [facility] [address] [place] [phone] Performing Lab: [address] [address] [facility] LIPID PANEL (STL) CHOLESTEROL IN HDL [MASS/VOLUM E] IN SERUM OR PLASMA 28 mg/dL 40 12/17 L Specimen Type: PLASMA Comment: LDL calculation invalid when Triglyceride exceeds 250 mg/dl No hemolysis noted. Ordering Provider: AMADA GIL Report Released Date/Time: Dec 12, 2022 02:52 PM Reporting Lab: [facility] [address] [facility] [place] [phone] Performing Lab: [facility] [address] [facility] [place] [phone] [facility] LIPID PANEL (STL) CHOLESTEROL IN LDL [MASS/VOLUM E] IN SERUM OR PLASMA BY DIRECT ASSAY 147 mg/dL 100 12/17 Specimen Type: PLASMA Comment: LDL calculation invalid when Triglyceride exceeds 250 mg/dl No hemolysis noted. Ordering Provider: AMADA GIL Report Released Date/Time: Dec 12, 2022 02:52 PM Reporting Lab: [facility] [address] [place] [phone] Performing Lab: [facility] [address] [place] [phone] [facility] VITAMIN D, 25-HYDROXY 25-HYDROXYV ITAMIN D3 [MASS/VOLUM E] IN SERUM OR PLASMA 36.9 ng/mL 30 - 96 12/17 Specimen Type: SERUM No comment entered. Ordering Provider: AMADA GIL Report Released Date/Time: Dec 12, 2022 02:52 PM Reporting Lab: [facility] [address] [facility] [phone] Performing Lab: [address] [phone] [facility] Vital Signs Combined list of inpatient and outpatient Vital Signs from Department of Defense and Veterans Affairs, ranging from 12 months to all on record, depending upon the facility. Vital Sign Value Date Comments Source SYSTOLIC BLOOD PRESSURE 132 02/06/2024 14:23:33 [facility] DIASTOLIC BLOOD PRESSURE 83 02/06/2024 14:23:33 [facility] PULSE OXIMETRY 97 02/06/2024 14:23:33 [facility] WEIGHT 221.4 02/06/2024 14:23:33 [facility] BMI 35 kg/m2 02/06/2024 14:23:33 [facility] 4 02/06/2024 14:23:33 [facility] TEMPERATURE 98.1 02/06/2024 14:23:33 [facility] PULSE 66 02/06/2024 14:23:33 [facility] RESPIRATION 18 02/06/2024 14:23:33 [facility] Encounters Combined list of: 1) Encounters from Department of Veterans Affairs facilities going backup to the last 18 months, not all VA inpatient encounters are included; 2) Encounters from the Department of Defense facilities going backup to 280 months. Location Location Details Encounter Type Encounter Number Reason For Visit Attending Provider ADM Date DC Date Status Disposition Source [facility](NOELLE C Post Immunizat ion) OUTPATIENT [id number] IET PPD ASIM REID 07/14 Released w/o Limitations [facility](M AHC Post Immuniz ation) [facility](IEP Hearing Conservat ion) OUTPATIENT [id number] NANCI SIMS 07/14 Released w/o Limitations [facility](I EP Hearing Conserv ation) [facility](PES Optometry -Trainee) OUTPATIENT [id number] NATANAEL GARZA 07/14 Released w/o Limitations [facility](P ES Optomet ry-David nee) [facility](NOELLE C Post Immunizat ion) OUTPATIENT [id number] IET IMMUNIZ ATION QUYNH MONTENEGRO 07/16 Released w/o Limitations [facility](M AHC Post Immuniz ation) [facility](Fa m Practice FB) OUTPATIENT [id number] injury to knee NISHI SOARES 01/10 Released w/o Limitations [facility]( Fam Practic e FB) [facility](Ph ys Therapy FB) OUTPATIENT [id number] crutche s for PWB on R leg ANKIT GALEANO 01/10 Released with Work/Duty Limitations [facility]( Phys Therapy FB) [facility](Fa m Practice FB) OUTPATIENT [id number] re-eval right knee to get off crutche s WILTON REYNOLDS 01/20 Released w/o Limitations [facility]( Fam Practic e FB) [facility](Ph ys Therapy FB) OUTPATIENT [id number] joint pain, localiz ed in the knee MIGUEL JOY Elizabeth 01/27 Released with Work/Duty Limitations [facility]( Phys Therapy FB) [facility](Ph ys Therapy FB) OUTPATIENT [id number] MOBEX-- RT KENE SHARIF JOYLAURA Johnson 02/03 Released w/o Limitations [facility]( Phys Therapy FB) [facility](Ph ys Therapy FB) OUTPATIENT [id number] RT KNEE MIGUEL JOY Elizabeth 02/07 Released w/o Limitations [facility]( Phys Therapy FB) [facility](Ph ys Therapy FB) OUTPATIENT [id number] RT KNEE MIGUEL JOY Elizabeth 02/09 Released w/o Limitations [facility]( Phys Therapy FB) [facility] [employer]) [place]IENT [id number] JANELLE JOHNSON 04/04 Released w/o Limitations [facility] [employer] [facility] [employer] [id number] TESTED + STD, NEED FURTHER TESTING -4TH BCT KT MARES 04/15 Released w/o Limitations [facility] [employer] [facility] [employer]) [place] [id number] RT KNEE PAIN / HHC 4 BCT KT MARES 05/24 Released with Work/Duty Limitations [facility] [employer] [facility] [employer] [id number] NISA BARRIOS 05/24 Released w/o Limitations [facility] [employer] [facility] [employer] TELE CONSULT [id number] KT MARES 05/26 [facility] [employer] [facility] [employer]) [place] [id number] OLD DISRUPT ION OF ANTERIO R CRUCIAT E LIGAMEN T LETHA DE 06/03 Released with Work/Duty Limitations [facility] [employer] [facility] [employer]) [place] [id number] OLD DISRUPT ION OF ANTERIO R CRUCIAT E LIGAMEN T IVANMATTIE 06/21 Released w/o Limitations [facility] [employer] [facility] [employer]) [place] [id number] CONY MATHEW 06/24 Released w/o Limitations [facility] [employer] [facility] [employer]) [place] [id number] emre to CHRISTIE Finley 06/29 Released w/o Limitations [facility] [employer] [facility] [employer]) [place] [id number] ENDER CROW 06/29 Released w/o Limitations [facility] [employer] [facility] [employer]) [place] [id number] ARASELI CAMERON 07/04 Released w/o Limitations [facility] [employer] [facility] [employer]) [place] [id number] ENDER CROW 07/06 Released w/o Limitations [facility] [employer] [facility] [employer] [id number] ARASELI CAMERON 07/11 Released w/o Limitations [facility] [employer] [facility] [employer]) [place] [id number] ARASELI CAMERON 07/13 Released w/o Limitations [facility] [employer] [facility] [employer]) [place] [id number] suzie miner/ENDER Gomez 07/13 Released w/o Limitations [facility] [employer] [facility] [employer]) [place] [id number] CONY MATHEW 07/15 Released w/o Limitations [facility] [employer] [facility] [employer] [id number] MATTIE LOVE 07/15 Released w/o Limitations [facility] [employer] [facility] [employer] [id number] SURG [id number] -R KNEE CHRISTIE NUGENT 07/20 Released w/o Limitations [facility] [employer] [facility] [employer] [id number] GEORGIE NAIK 07/20 Released w/o Limitations [facility] [employer] [facility] [employer]) [place] [id number] Pas entered the order NISA MICHAELS 08/08 Released w/o Limitations [facility] [employer] [facility] [employer]) [place] [id number] MATTIE LOVE 08/16 Released w/o Limitations [facility] [employer] [facility] [employer]) [place] [id number] SURG [id number] -R KNEE CHRISTIE NUGENT 08/17 Released w/o Limitations [facility] [employer] [facility] [employer] [place] Physical Therapy) OUTPATIENT [id number] MATTIE LOVE 08/24 Released w/o Limitations [facility] [employer] Physica l Therapy ) [facility] [employer] [place]([facility] Physical Therapy) OUTPATIENT [id number] MATTIE LOVE 09/08 Released w/o Limitations [facility] [employer] Physica l Therapy ) [facility] [employer] [place]([facility] Physical Therapy) OUTPATIENT [id number] VIOLETTA MARQUEZ 09/13 Released w/o Limitations [facility] [employer] Physica l Therapy ) [facility] [employer] [place]([facility] Physical Therapy) OUTPATIENT [id number] aaron HUA 09/19 Released w/o Limitations [facility] [employer] Physica l Therapy ) [facility], [place] Physical Therapy) OUTPATIENT [id number] exer VIOLETTA MARQUEZ 09/22 Released w/o Limitations [facility] [employer] Physica l Therapy ) [facility] [employer] [place] Physical Therapy) OUTPATIENT [id number] VIOLETTA MARQUEZ 09/29 Released w/o Limitations [facility] [employer] Physica l Therapy ) [facility] [employer] [place]([facility] Physical Therapy) OUTPATIENT [id number] exer VIOLETTA MARQUEZ 10/04 Released w/o Limitations [facility] [employer] Physica l Therapy ) [facility] [employer] [place]([facility] Physical Therapy) OUTPATIENT [id number] exer VIOLETTA MARQUEZ 10/06 Released w/o Limitations [facility] [employer] Physica l Therapy ) [facility] [employer] [place]([facility] Optometry ) OUTPATIENT [id number] LYNSEY Park 10/07 Released w/o Limitations [facility] [employer] Optomet ry) [facility] [employer] [place]([facility] Physical Therapy) OUTPATIENT [id number] MATTIE LOVE 10/10 Released w/o Limitations [facility] [employer] Physica l Therapy ) [facility] [employer] [place]([facility] Physical Therapy) OUTPATIENT [id number] NISHI CRUZ 10/11 Released w/o Limitations [facility] [employer] Physica l Therapy ) [facility], [place]([facility] Physical Therapy) OUTPATIENT [id number] STAR HUA 10/20 Released w/o Limitations [facility] [employer] Physica l Therapy ) [facility], [place]([facility] Physical Therapy) OUTPATIENT [id number] MATTIE LOVE 11/04 Released w/o Limitations [facility] [employer] Physica l Therapy ) [facility], [place]([facility] Physical Therapy) OUTPATIENT [id number] VIOLETTA MARQUEZ 11/11 Released w/o Limitations [facility] [employer] Physica l Therapy ) [facility], [place]([facility] Physical Therapy) OUTPATIENT [id number] MATTIE LOVE 12/05 Released w/o Limitations [facility] [employer] Physica l Therapy ) [facility], [place]([facility] Physical Therapy) OUTPATIENT [id number] MATTIE LOVE 12/30 [facility]ased w/o Limitations [facility] [place] [place] ) [place] Physical Therapy) OUTPATIENT [id number] MATTIE LOVE 02/15 [facility]ased w/o Limitations [facility] [place] Phys[place] [facility] [place] ) [place]) [place] [id number] Conditi on Managem ent/Fol low Up /Er BLAISE LUOSIE 07/12 [facility]ased w/o Limitations [facility] [place]) OUT[place]IENT [id number] [facility] PONCHO JAMES Yoselyn 07/16 Released w/o Limitations [facility] [place] [id number] Post KARELY GRAHAM 03/08 [place]ased w/o Limitations [facility] [place] [facility] OUTPATIENT [id number] VI VALENCIA V 09/19 Released w/o Limitations [facility] Wellnes s Program ) [facility] [facility]) OUTPATIENT [id number] Notes Entered by: IZABELLA POWER V 20 Sep 2011 0921 ------- ------- ------- ------- -- SANJANA TY INPROCE SSING SELF CARE VI VALENCIA V 09/19 Released w/o Limitations [facility] Wellnes s Program ) [facility] [facility]) OUTPATIENT [id number] Notes Entered by: IZABELLA POWER V 20 Sep 2011 0953 ------- ------- ------- ------- -- GISELA S ORIENTA TION CLASS BLANCA Cabrera VI V 09/19 Released w/o Limitations [facility] Wellnes s Program ) [facility] Family Practice) OUTPATIENT [id number] possibl e ankle injury/ / [id number] KIAN ROMAN 10/01 Released w/o Limitations [facility] Family Practic e) [facility] Immunizat ion) OUTPATIENT [id number] Notes Entered by: Bhavesh VERA 11 Dec 2011 1439 ------- ------- ------- ------- -- flu shot SHILA BLAND 12/10 Released w/o Limitations [facility] Immuniz ation) [facility] Family Practice) OUTPATIENT [id number] Notes Entered by: HERNAN ZIMMER 18 Dec 2011 1136 ------- ------- ------- ------- -- pdp SHANA SHERMAN 12/17 Released w/o Limitations [facility] Family Practic e) [facility] Family Practice) OUTPATIENT [id number] KERRY XIAO 01/05 Released w/o Limitations [facility] Family Practic e[facility] Nutrition Care) OUTPATIENT [id number] Nutriti on Class SHANNON UJAREZ 02/06 Released w/o Limitations [facility] Nutriti on Care) [facility] Hearing Conservat ion) OUTPATIENT [id number] Notes Entered by: MARCIO CARTER 27 May 2012 1600 ------- ------- ------- ------- -- hearing exam MARCIO CARTER 05/27 Released w/o Limitations [facility] Conserv ation) [facility] M01[facility] Blue) OUTPATIENT [id number] needs to get sperm tested SHERMAN CONY [place] 08/06 Released w/o Limitations [facility]) [facility]) OUTPATIENT [id number] sinus infecti on CHARANJITRACHEL CONY [place] 08/10 Released w/o Limitations [facility]) [facility]) TELE CONSULT [id number] Notes Entered by: JANETH SHIPMAN 19 Oct 2012 0928 ------- ------- ------- ------- -- Needs appt for HIV test. SHERMAN RNT ENDER LIEBERMAN 10/19 [facility]) [facility]) OUTPATIENT [id number] Notes Entered by: KOREY WATTS 19 Jan 2013 1049 ------- ------- ------- ------- -- vision CALLIE TSANG 01/19 Released w/o Limitations [facility]) [facility]) OUTPATIENT [id number] ZAKIYA [address] 02/12 Released w/o Limitations [facility](AMH M01A Blue) [facility] M01A Blue) OUTPATIENT [id number] [place] OLEGARIO FLANNERY 05/31 Released w/o Limitations [facility](AMH M01A Blue) [facility](AMH M01A Blue) OUTPATIENT [id number] right knee pain/is sues/pr ior surgery done/ [id number] CRESENCIO PAVON 07/13 Released with Work/Duty Limitations [facility](AMH M01A Blue) [facility](PATT [id number]) TELE CONSULT [id number] Notes Entered by: Daysi GREGG 04 Aug 2013 1429 ------- ------- ------- ------- -- Ortho referra l for meniscu s and ACL tears in right knee BEVERLEY GREGG 08/04 [facility](ZZZ [id number] RED) [facility](LSL Orthopedi cs) OUTPATIENT [id number] Joint pain, localiz ed in the knee QUYNH PEACE 08/24 Released w/o Limitations [facility] Orthope dics) [facility]) OUTPATIENT [id number] ACL brace ENDER JIMENES 08/25 Released w/o Limitations [facility]) [facility](AMH M01A Blue) OUTPATIENT [id number] was only given a partial amount of Zyban and need full before i run out NATANAEL ARMENTA 08/26 Released w/o Limitations [facility](AMH M01A Blue) [facility](LSL Orthopedi cs) OUTPATIENT [id number] R knee pain ANTOINE BROWN 11/12 Released w/o Limitations [facility] Orthope dics) [facility]SL Orthopedi cs) OUTPATIENT [id number] preop/R t ACL revisio 2013 ANTOINE BROWN 11/30 Released w/o Limitations [facility] Orthope [facility]ics) [facility](LSL Physical Therapy) OUTPATIENT [id number] MICHELE Patel 11/30 Released w/o Limitations [facility](LSL Physica l Therapy ) [facility](LSL Pain Managemen t) OUTPATIENT [id number] Notes Entered by: DANE RUST 01 Dec 2013 0915 ------- ------- ------- ------- -- Acute Pain Service Nerve Block MIGUEL AGUILAR 12/01 Released w/o Limitations [facility]SL Pain Managem ent) [facility] Orthopedi cs) TELE CONSULT [id number] Notes Entered by: DESHAWN MCDERMOTT 06 Dec 2013 0849 ------- ------- ------- ------- -- post op phone call DESHAWN MCDERMOTT 12/06 [facility] Orthope [facility]) [facility](WBD Physical therapy) OUTPATIENT [id number] ACL RECONST RUCT/ME NISCUL REPAIR O'BLOCK, AIDEN M 12/06 Released w/o Limitations [facility](WBD Physica l therapy ) [facility] Physical therapy) OUTPATIENT [id number] THER EX KNEE O'BLOCK, AIDEN M 12/09 Released w/o Limitations [facility] Physica [facility] therapy ) [facility] [id number] ROM knee brace JUAN ANTONIO HENDERSON JR 12/13 Released w/o Limitations [facility]) [facility]SL Orthopedi cs) OUTPATIENT [id number] Nov/Rt ACL revisio ANTOINE Cloud 12/13 Released w/o Limitations [facility] Orthope [facility]ics) [facility] Physical therapy) OUTPATIENT [id number] THER EX KNEE O'BLOCK, AIDEN M 12/15 Released w/o Limitations [facility] Physica l therapy ) [facility] Physical therapy) OUTPATIENT [id number] THER EX KNEE O'BLOCK, AIDEN M 12/17 Released w/o Limitations [facility] Physica l therapy ) [facility] Physical therapy) OUTPATIENT [id number] F/U KNEE O'BLOCK, AIDEN M 12/28 Released w/o Limitations [facility] Physica [facility] therapy ) [facility] Physical therapy) OUTPATIENT [id number] Notes Entered by: EUGENE AIDEN M 03 Jan 2014 0637 ------- ------- ------- ------- -- KNEE O'RAUL AIDEN M 01/03 Released w/o Limitations [facility] Physica l therapy ) [facility](AMH M01B White) OUTPATIENT [id number] Fever green red mucus out of nose [id number] LORY GONZALEZ SHAQUILLE 01/06 Sick at Home/Quarter s [facility](AMH M01B White) [facility] Orthopedi cs) OUTPATIENT [id number] DOS:10S QY8644. REVISIO ANTOINE NEGRO 01/07 Released w/o Limitations [facility] Orthope [facility]ics) [facility] Physical therapy) OUTPATIENT [id number] R Knee FUNMILAYO BOWLES 01/21 Released w/o Limitations [facility] Physica l therapy ) [facility] Physical therapy) OUTPATIENT [id number] R Knee O'RAUL AIDEN M 01/26 Released w/o Limitations [facility] Physica [facility] therapy ) [facility] Physical therapy) OUTPATIENT [id number] THER EX KNEE O'AIDEN CARTER 02/04 Released w/o Limitations [facility] Physica l therapy ) [facility] Physical therapy) OUTPATIENT [id number] THER EX KNEE FUNMILAYO BOWLES 02/08 Released w/o Limitations [facility] Physica l therapy ) [facility](AMH M01A Blue) OUTPATIENT [id number] NATANAEL VO 02/11 Released w/o Limitations [facility](AMH M01A Blue) [facility](LSL Orthopedi cs) OUTPATIENT [id number] f/u acl reconst ruction ANTOINE BROWNRICK 02/15 Released w/o Limitations [facility] Orthope dics) [facility] Optometry ) OUTPATIENT [id number] blurry near vision PITA AWAD 02/16 Released w/o Limitations [facility] Optomet ry) [facility](W[facility] Physical therapy) OUTPATIENT [id number] F/U KNEE O'AIDEN CARTER 02/23 Released w/o Limitations [facility] Physica [facility] therapy ) [facility] Physical therapy) OUTPATIENT [id number] THER EX KNEE FUNMILAYO BOWLES 03/02 Released w/o Limitations [facility] Physica l therapy ) [facility] Physical therapy) OUTPATIENT [id number] THER EX KNEE FUNMILAYO BOWLES 03/09 Released w/o Limitations [facility] Physica [facility] therapy ) [facility](W[facility] Physical therapy) OUTPATIENT [id number] THER EX KNEE Raymond'AIDEN CARTER 03/11 Released w/o Limitations [facility] Physica [facility] therapy ) [facility] Physical therapy) OUTPATIENT [id number] FSS II AIDEN AGUILLON 03/29 Released w/o Limitations [facility] Physica [facility] therapy ) [facility] Physical therapy) OUTPATIENT [id number] Notes Entered by: AIDEN KNIGHT 05 Apr 2014 1239 ------- ------- ------- ------- -- FSS II AIDEN AGUILLON 04/05 Released w/o Limitations [facility] Physica l therapy ) [facility] Physical therapy) OUTPATIENT [id number] Notes Entered by: AIDEN KNIGHT 07 Apr 2014 0941 ------- ------- ------- ------- -- ISRAEL AGUILLON AIDEN Yoselyn 04/07 Released w/o Limitations [facility] Physica l therapy ) [facility](AMH M01A Blue) OUTPATIENT [id number] Notes Entered by: MARIE BACH 13 Apr 2014 1333 ------- ------- ------- ------- -- [facility] PEGGY BACH 04/13 Released w/o Limitations [facility](AMH M01A Blue) [facility] Physical therapy) OUTPATIENT [id number] Notes Entered by: JANETH BOWLES 14 Apr 2014 0904 ------- ------- ------- ------- -- FUNMILAYO SALMON 04/14 Released w/o Limitations [facility] Physica l therapy ) [facility](W[facility] Physical therapy) OUTPATIENT [id number] F/U KNEE PAL AIDEN Yoselyn 04/18 Released w/o Limitations [facility] Physica l therapy ) [facility](LSL Orthopedi cs) OUTPATIENT [id number] f/u [id number] ANTOINE BROWN 05/31 Released w/o Limitations [facility] Orthope dics) [facility](W[facility] Physical therapy) OUTPATIENT [id number] Notes Entered by: JANETH BOWLES 07 Jun 2014 1040 ------- ------- ------- ------- -- MEHUL II FUNMILAYO BOWLES 06/07 Released w/o Limitations [facility] Physica l therapy ) [facility]SL Orthopedi cs) OUTPATIENT [id number] Letter for admin reasons ANTOINE BROWN 06/14 Released w/o Limitations [facility] Orthope dics) [facility](W[facility] Physical therapy) OUTPATIENT [id number] Notes Entered by: AIDEN KNIGHT 21 Jun 2014 0900 ------- ------- ------- ------- -- FSS AIDEN ARMANDO 06/21 Released w/o Limitations [facility] Physica l therapy ) [facility] OUTPATIENT [id number] BOD KEDAR CARRANZA Funmilayo 07/11 Released w/o Limitations [facility](WBD [facility]) [facility](W[facility] Physical therapy) OUTPATIENT [id number] Notes Entered by: JANETH BOWLES 26 Jul 2014 1220 ------- ------- ------- ------- -- FSS II FUNMILAYO BOWLES 07/26 Released w/o Limitations [facility](W[facility] Physica l therapy ) [facility](LSL Orthopedi cs) OUTPATIENT [id number] f/u R Knee pain/Fo anselmo pt having problem BENJAMIN IBARRA 07/28 Released with Work/Duty Limitations [facility]SL Orthope dics) [facility]) OUTPATIENT [id number] RT large playmak er acl brace LEONILA GAO Funmilayo 07/28 Released w/o Limitations [facility]) [facility](WBD Physical therapy) OUTPATIENT [id number] AIDEN AGUILLON 08/16 Released w/o Limitations [facility](WBD Physica l therapy ) [facility](WBD Physical therapy) OUTPATIENT [id number] Notes Entered by: AIDEN KNIGHT 06 Sep 2014 0917 ------- ------- ------- ------- -- YOGA AIDEN AGUILLON 09/06 Released w/o Limitations [facility](W[facility] Physica l therapy ) [facility] OUTPATIENT [id number] right knee pain (post revisio n ACL reconst ruction ) CRESENCIO PAVON 09/07 Released w/o Limitations [facility](AMH M01A Blue) [facility] M01B White) TELE CONSULT [id number] Notes Entered by: SUHA DEL ROSARIO 17 Oct 2014 1329 ------- ------- ------- ------- -- no acute appt with pcm mattie calderon/p atient needs to be seen for right knee pain ROBERTO HALE 10/17 [facility](AMH M01B White) [facility]H M01B White) OUTPATIENT [id number] Notes Entered by: ARASELI SCHUMACHER 17 Oct 2014 1347 ------- ------- ------- ------- -- [facility] 10/17 [facility]ased w/o Limitations [facility]) OUTPATIENT [id number] Notes Entered by: Serge MILLER 17 Oct 2014 1354 ------- ------- ------- ------- -- @1400 No informa tion provide d by [facility] BHAVESH SALAS 10/17 Released w/o Limitations [facility](ZZZ LSL Physica l Exam) [facility] OUTPATIENT [id number] F/U right knee per CRESENCIO Montano 10/26 Released with Work/Duty Limitations [facility](AMH M01A Blue) [facility](LSL Orthopedi cs) OUTPATIENT [id number] Joint pain in the right knee BENJAMIN IBARRA 11/10 Released w/o Limitations [facility] Orthope dics) [facility]A Blue) TELE CONSULT [id number] Notes Entered by: ALEX PAULINO 10 Nov 2014 1416 ------- ------- ------- ------- -- PCM Mattie calderon / Pt told to FU with Dr. Pavon after orthope dics appt MONALISA FERNANDEZ 11/10 [facility](AMH M01A Blue) [facility](AMH M01A Blue) OUTPATIENT [id number] [facility] CRESENCIO PAVON 11/15 Released w/o Limitations [facility](AMH M01A Blue) [facility](ZZZLS L Physical Exam) TELE CONSULT [id number] KANE MELCHOR T 11/16 [facility](ZZZ LSL Physica l Exam) [facility](AMH M01B White) OUTPATIENT [id number] lower back pain PEGGY ACEVEDO 12/19 Released w/o Limitations [facility](AMH M01B White) [facility](ZZZLS L Physical Exam) OUTPATIENT [id number] OPIN KANE MELCHOR T 01/03 Released with Work/Duty Limitations [facility](ZZZ LSL Physica l Exam) [facility](AMH M01B White) OUTPATIENT [id number] possibl e sinus infecti [id number] MIRAVAPEGGY CANDELARIA 02/06 Released w/o Limitations [facility](AMH M01B White) [facility](AMH M01B White) OUTPATIENT [id number] URI f[facility] 02/15 Released w/o Limitations [facility](AMH M01B White) [facility](ZZZAM [id number]) OUTPATIENT [id number] Notes Entered by: JESSIKA ROCHE 12 Apr 2015 1026 ------- ------- ------- ------- -- vis JESSIKA ROCHE 04/12 Released w/o Limitations [facility](ZZZ [id number] RED) [facility] [id number][place] OUTPATIENT [id number] Notes Entered by: JESSIKA ROCHE 12 Apr 2015 1303 ------- ------- ------- ------- -- [facility] JESSIKA ROCHE 04/12 Released w/o Limitations [facility](ZZZ [id number] RED) [facility]H M[facility]B White) OUTPATIENT [id number] PHA.([phone]) PEGGY ACEVEDO 04/17 [facility] Limitations [facility](AMH M01B White) [facility] M[facility]B White) OUTPATIENT [id number] numbnes s and tinglin g in left ring and pinky fingers PEGGY ACEVEDO 05/29 [facility]ased w/o Limitations [facility](AMH M01B White) [facility] M[facility]B White) OUTPATIENT [id number] still have tinglin g in left hand. need followu p. PEGGY ACEVEDO 07/04 [facility]ased w/o Limitations [facility](AMH M01B White) [facility] Outpatient Encounter [id number] 12/09 [facility] Outpatient Encounter [id number] 12/22 [facility] Outpatient Encounter [id number] Diagnos is: ICD-10- CM Z00.00 Encntr for general adult medical exam w/o abnorma l evangelina s TIFFANY MEYER 02/05 [facility] Outpatient Encounter [id number] 02/08 [facility] Outpatient Encounter [id number] 02/10 [facility] OFFICE O/P NEW LOW 30 MIN [id number] Diagnos is: ICD-10- CM M54.51 Vertebr ogenic low back pain GILMORE,B LINDA 05/04 [facility] MANJ 3-4 [place] [id number] Diagnos is: ICD-10- CM M54.51 Vertebr ogenic low back pain GILMORE,B LINDA 05/11 [facility] Outpatient Encounter [id number] 05/14 [facility] CHIR[facility]CT MANJ 3-4 [place] [id number] Diagnos is: ICD-10- CM M54.50 Low back pain, unspeci fied GILMORE,B LINDA 05/25 [facility] 3-4 [place] [id number] Diagnos is: ICD-10- CM M54.50 Low back pain, unspeci fied GILMORE,B LINDA 06/01 [facility] Outpatient Encounter [id number] GILMORE,B LINDA 06/09 [facility] N Procedures Combined list of: 1) Procedures from Department of Veterans Affairs facilities going back up to thelast 18 months, not all VA non-surgical procedures are included; 2) All procedures from the Department of Defense facilities. Procedure Procedure Type Code Date Perfomer Nathaniel [facility] e HEPATITIS A AND HEPATITIS B VACCINE (HEPA-HEPB), ADULT DOSAGE, FOR INTRAMUSCULAR USE 2007 [facility] ANALYSIS OF CLINICAL DATA STORED IN COMPUTERS (EG, ECGS, BLOOD PRESSURES, HEMATOLOGIC DATA) 2007 [facility] SKIN TEST; TUBERCULOSIS, INTRADERMAL 2007 [facility] THERAPEUTIC PROCEDURE,1 OR MORE AREAS,EACH 15 MINUTES;NEUROMUSCUL AR REEDUCATION OF MOVEMENT,BALANCE,CO ORDINATION,KINESTHE TIC SENSE,POSTURE,AND/O R PROPRIOCEPTION FOR SITTING AND/OR STANDING ACTIVITIES 2007 [facility] THERAPEUTIC PROCEDURE, 1 OR MORE AREAS, EACH 15 MINUTES; THERAPEUTIC EXERCISES TO DEVELOP STRENGTH AND ENDURANCE, RANGE OF MOTION AND FLEXIBILITY 2007 [facility] THERAPEUTIC PROCEDURE, 1 OR MORE AREAS, EACH 15 MINUTES; THERAPEUTIC EXERCISES TO DEVELOP STRENGTH AND ENDURANCE, RANGE OF MOTION AND FLEXIBILITY 2007 [facility] THERAPEUTIC PROCEDURE, 1 OR MORE AREAS, EACH 15 MINUTES; THERAPEUTIC EXERCISES TO DEVELOP STRENGTH AND ENDURANCE, RANGE OF MOTION AND FLEXIBILITY 2007 [facility] IMMUNIZATION ADMINISTRATION BY INTRANASAL OR ORAL ROUTE; 1 VACCINE (SINGLE OR COMBINATION VACCINE/TOXOID) 2007 [facility] KNEE ORTHOSIS, ELASTIC WITH JOINTS, PREFABRICATED ITEM THAT HAS BEEN TRIMMED, BENT, MOLDED, ASSEMBLED, OR OTHERWISE CUSTOMIZED TO FIT A SPECIFIC PATIENT BY AN INDIVIDUAL WITH EXPERTISE 2007 [facility] CRUTCHES UNDERARM, WOOD, ADJUSTABLE OR FIXED, PAIR, WITH PADS, TIPS AND HANDGRIPS 2007 [facility] DEXAMETHASONE, ORAL, 0.[address] [facility] EAR MOLD/INSERT, NOT DISPOSABLE, ANY TYPE 2010 [facility] INFLUENZA VIRUS VACCINE, TRIVALENT, LIVE (LAIV3), FOR INTRANASAL USE 2010 [facility] VACCINIA IMMUNE GLOBULIN, HUMAN, FOR INTRAMUSCULAR USE 2009 [facility] INJECTION, KETOROLAC TROMETHAMINE, PER [address] [facility] SKIN TEST; TUBERCULOSIS, INTRADERMAL 2009 [facility] PHYSICAL THERAPY RE-EVALUATION 2008 [facility] PHYSICAL THERAPY RE-EVALUATION 2008 [facility] PHYSICAL THERAPY RE-EVALUATION 2008 [facility] THERAPEUTIC PROCEDURE, 1 OR MORE AREAS, EACH 15 MINUTES; THERAPEUTIC EXERCISES TO DEVELOP STRENGTH AND ENDURANCE, RANGE OF MOTION AND FLEXIBILITY 2008 [facility] PHYSICAL THERAPY RE-EVALUATION 2008 [facility] THERAPEUTIC PROCEDURE(S), GROUP (2 OR MORE INDIVIDUALS) 2008 [facility] APPLICATION OF A MODALITY TO 1 OR MORE AREAS; HOT OR COLD PACKS 2008 [facility] PHYSICAL THERAPY RE-EVALUATION 2008 [facility] OPHTHALMOLOGICAL SERVICES: MEDICAL EXAMINATION AND EVALUATION, WITH INITIATION OR CONTINUATION OF DIAGNOSTIC AND TREATMENT PROGRAM; INTERMEDIATE, ESTABLISHED PATIENT 2008 DoD APPLICATION OF A MODALITY TO 1 OR MORE AREAS; HOT OR COLD PACKS 2008 DoD APPLICATION OF A MODALITY TO 1 OR MORE AREAS; HOT OR COLD PACKS 2008 DoD APPLICATION OF A MODALITY TO 1 OR MORE AREAS; HOT OR COLD PACKS 2008 DoD APPLICATION OF A MODALITY TO 1 OR MORE AREAS; HOT OR COLD PACKS 2008 DoD APPLICATION OF A MODALITY TO 1 OR MORE AREAS; HOT OR COLD PACKS 2008 DoD SELF-CARE/HOME MANAGMENT TRAIN (EG,ACT OF DAILY LIVING (ADL) &COMPENSAT TRAIN,MEAL PREPARATION,SAFETY PROCS,AND INSTRUCT IN USE OF ASST TECHNOLOGY DEV/ADPT EQUIP) DIR ONE-ON-ONE CONT,EA 15 MINUTES 2008 DoD PHYSICAL THERAPY RE-EVALUATION 2008 DoD PHYSICAL THERAPY RE-EVALUATION 2008 DoD POSTOPERATIVE FOLLOW-UP VISIT, NORMALLY INCLUDED IN THE SURGICAL PACKAGE, INDICATE THAT EVALUATION & MANAGEMENT SERVICE WAS PERFORMED DURING A POSTOPERATIVE PERIOD REASON RELATED ORIGINAL PROCEDURE 2008 DoD PHYSICAL THERAPY RE-EVALUATION 2008 DoD SELF-CARE/HOME MANAGMENT TRAIN (EG,ACT OF DAILY LIVING (ADL) &COMPENSAT TRAIN,MEAL PREPARATION,SAFETY PROCS,AND INSTRUCT IN USE OF ASST TECHNOLOGY DEV/ADPT EQUIP) DIR ONE-ON-ONE CONT,EA [address] [facility] UNLISTED SPECIAL SERVICE, PROCEDURE OR REPORT 2008 DoD KNEE ORTHOSIS,ADJUSTABLE KNEE JTS (UNICENT/POLYCENT), POSIT ORTHO,RIGID SUPPORT,PREFAB, THAT HAS BEEN TRIMMED,BENT,MOLDED ,ASSEMBLED,OR OTHERWISE CUSTOMIZED TO FIT A SPEC PAT BY AN INDIV W EXPERTISE 2008 DoD PHYSICAL THERAPY RE-EVALUATION 2008 DoD APPLICATION OF A MODALITY TO 1 OR MORE AREAS; HOT OR COLD PACKS 2008 DoD SELF-CARE/HOME MANAGMENT TRAIN (EG,ACT OF DAILY LIVING (ADL) &COMPENSAT TRAIN,MEAL PREPARATION,SAFETY PROCS,AND INSTRUCT IN USE OF ASST TECHNOLOGY DEV/ADPT EQUIP) DIR ONE-ON-ONE CONT,EA 15 MINUTES 2008 DoD APPLICATION OF A MODALITY TO 1 OR MORE AREAS; HOT OR COLD PACKS 2008 DoD APPLICATION OF A MODALITY TO 1 OR MORE AREAS; HOT OR COLD PACKS 2008 DoD THERAPEUTIC PROCEDURE, 1 OR MORE AREAS, EACH 15 MINUTES; THERAPEUTIC EXERCISES TO DEVELOP STRENGTH AND ENDURANCE, RANGE OF MOTION AND FLEXIBILITY 2008 DoD APPLICATION OF A MODALITY TO 1 OR MORE AREAS; HOT OR COLD PACKS 2008 DoD APPLICATION OF A MODALITY TO 1 OR MORE AREAS; HOT OR COLD PACKS 2008 DoD APPLICATION OF A MODALITY TO 1 OR MORE AREAS; HOT OR COLD PACKS 2008 DoD PHYSICAL THERAPY EVALUATION 2008 [facility] RADIOLOGIC EXAMINATION, KNEE; 1 OR [address] [facility] KNEE ORTH,DOUBLE UPRT,THI&CALF,W ADJ FLX &EXT JT (UNI/POLYCENT),MED- LAT&ROT CTRL,WWO ALEX/VALG ADJUST,PREFAB ITEM THAT HAS BEEN TRIM,BENT,MOLD,ASSE M/CUSTOM TO FIT A SPEC PAT BY AN INDIV W EXPERTISE 2008 [facility] TOBACCO USE ASSESSED (CAD, CAP, COPD, PV) (DM) 2008 [facility] INJECTION, CEFTRIAXONE SODIUM, PER [address] [facility] HEPATITIS A AND HEPATITIS B VACCINE (HEPA-HEPB), ADULT DOSAGE, FOR INTRAMUSCULAR USE 2008 [facility] PURE TONE AUDIOMETRY (THRESHOLD), AUTOMATED; AIR ONLY 2015 [facility] SCREENING TEST OF VISUAL ACUITY, QUANTITATIVE, BILATERAL 2015 [facility] TELEHEALTH ORIGINATING SITE FACILITY FEE 2014 [facility] TELE ASSESS & MGT SRV PROV QUAL NONPHYS HLTH CARE PRO TO EST PAT,PARENT,GUARD NOT ORIG REL ASSESS & MGT SRV PROV W/IN PREV 7 DAYS NOR LEAD ASSESS & MGT SRV/PX W/IN NXT 24 HR/SOON APT;5-10 MIN MED DIS 2014 DoD THERAPEUTIC PROCEDURE(S), GROUP (2 OR MORE INDIVIDUALS) 2014 DoD THERAPEUTIC PROCEDURE(S), GROUP (2 OR MORE INDIVIDUALS) 2014 DoD KNEE ORTHOSIS,ADJUSTABLE KNEE JTS (UNICENT/POLYCENT), POSIT ORTHO,RIGID SUPPORT,PREFAB, THAT HAS BEEN TRIMMED,BENT,MOLDED ,ASSEMBLED,OR OTHERWISE CUSTOMIZED TO FIT A SPEC PAT BY AN INDIV W EXPERTISE 2014 DoD THERAPEUTIC PROCEDURE(S), GROUP (2 OR MORE INDIVIDUALS) 2014 DoD THERAPEUTIC PROCEDURE(S), GROUP (2 OR MORE INDIVIDUALS) 2014 DoD PHYSICAL OR MANIPULATIVE THERAPY PERFORMED FOR MAINTENANCE RATHER THAN ZOROASTRIAN 2014 DoD THERAPEUTIC PROCEDURE(S), GROUP (2 OR MORE INDIVIDUALS) 2014 DoD PURE TONE AUDIOMETRY (THRESHOLD); AIR ONLY 2014 DoD THERAPEUTIC PROCEDURE(S), GROUP (2 OR MORE INDIVIDUALS) 2014 DoD THERAPEUTIC PROCEDURE(S), GROUP (2 OR MORE INDIVIDUALS) 2014 DoD THERAPEUTIC PROCEDURE(S), GROUP (2 OR MORE INDIVIDUALS) 2014 DoD PHYSICAL THERAPY RE-EVALUATION 2013 DoD APPLICATION OF A MODALITY TO 1 OR MORE AREAS; HOT OR COLD PACKS 2013 DoD APPLICATION OF A MODALITY TO 1 OR MORE AREAS; HOT OR COLD PACKS 2013 DoD PHYSICAL THERAPY RE-EVALUATION 2013 DoD DETERMINATION OF REFRACTIVE STATE 2013 DoD POSTOPERATIVE FOLLOW-UP VISIT, NORMALLY INCLUDED IN THE SURGICAL PACKAGE, INDICATE THAT EVALUATION & MANAGEMENT SERVICE WAS PERFORMED DURING A POSTOPERATIVE PERIOD REASON RELATED ORIGINAL PROCEDURE 2013 DoD APPLICATION OF A MODALITY TO 1 OR MORE AREAS; HOT OR COLD PACKS 2013 DoD APPLICATION OF A MODALITY TO 1 OR MORE AREAS; HOT OR COLD PACKS 2013 DoD PHYSICAL THERAPY RE-EVALUATION 2013 DoD APPLICATION OF A MODALITY TO 1 OR MORE AREAS; HOT OR COLD PACKS 2013 DoD POSTOPERATIVE FOLLOW-UP VISIT, NORMALLY INCLUDED IN THE SURGICAL PACKAGE, INDICATE THAT EVALUATION & MANAGEMENT SERVICE WAS PERFORMED DURING A POSTOPERATIVE PERIOD REASON RELATED ORIGINAL PROCEDURE 2013 [facility] APPLICATION OF A MODALITY TO 1 OR MORE AREAS; HOT OR COLD PACKS 2013 DoD PHYSICAL THERAPY RE-EVALUATION 2013 DoD APPLICATION OF A MODALITY TO 1 OR MORE AREAS; HOT OR COLD PACKS 2013 DoD APPLICATION OF A MODALITY TO 1 OR MORE AREAS; HOT OR COLD PACKS 2013 [facility] KNEE ORTH,DOUBLE UPRT,THI&CALF,W ADJ FLX &EXT JT (UNI/POLYCENT),MED- LAT&ROT CTRL,WWO ALEX/VALG ADJUST,PREFAB ITEM THAT HAS BEEN TRIM,BENT,MOLD,ASSE M/CUSTOM TO FIT A SPEC PAT BY AN INDIV W EXPERTISE 2013 DoD POSTOPERATIVE FOLLOW-UP VISIT, NORMALLY INCLUDED IN THE SURGICAL PACKAGE, INDICATE THAT EVALUATION & MANAGEMENT SERVICE WAS PERFORMED DURING A POSTOPERATIVE PERIOD REASON RELATED ORIGINAL PROCEDURE 2013 [facility] APPLICATION OF A MODALITY TO 1 OR MORE AREAS; HOT OR COLD PACKS 2013 [facility] THERAPEUTIC PROCEDURE, 1 OR MORE AREAS, EACH 15 MINUTES; THERAPEUTIC EXERCISES TO DEVELOP STRENGTH AND ENDURANCE, RANGE OF MOTION AND FLEXIBILITY 2013 [facility] INJECTION(S), ANESTHETIC AGENT(S) AND/OR STEROID; FEMORAL NERVE, INCLUDING IMAGING GUIDANCE, WHEN PERFORMED 2013 [facility] UNLISTED SPECIAL SERVICE, PROCEDURE OR REPORT 2013 [facility] CRUTCHES UNDERARM, OTHER THAN WOOD, ADJUSTABLE OR FIXED, PAIR, WITH PADS, TIPS AND HANDGRIPS 2013 St[address] [facility] KNEE ORTH,DOUBLE UPRT,THI&CALF,W ADJ FLX &EXT JT (UNI/POLYCENT),MED- LAT&ROT CTRL,O ALEX/VALG ADJUST,PREFAB ITEM THAT HAS BEEN TRIM,BENT,MOLD,ASSE M/CUSTOM TO FIT A SPEC PAT BY AN INDIV W EXPERTISE 2013 [facility] AUDIOMETRIC TESTING OF GROUPS 2013 [facility] SCREENING TEST OF VISUAL ACUITY, QUANTITATIVE, BILATERAL 2012 [facility] MEDICAL NUTRITION THERAPY; GROUP (2 OR MORE INDIVIDUAL(S)), EACH [address] [facility] INFLUENZA VIRUS VACCINE, TRIVALENT (IIV3), SPLIT VIRUS, 0.5 ML DOSAGE, FOR INTRAMUSCULAR USE 2011 [facility] PATIENT EDUCATION, NOT OTHERWISE CLASSIFIED, NON-PHYSICIAN PROVIDER, GROUP, PER SESSION 2011 [facility] PHYSICAL PERFORMANCE TEST OR MEASUREMENT (EG, MUSCULOSKELETAL, FUNCTIONAL CAPACITY), WITH WRITTEN REPORT, EACH [address] [facility] Physical Therapy Neuromuscular Re-education Physical Therapy Neuromuscular Re-education [address] [facility] Physical Therapy: ___ Se ion Segments, 15 Minutes Each Physical Therapy: ___ Session Segments, 15 Minutes Each [id number] [facility] Physical Medicine Physical Therapy Re-Evaluation Physical Medicine Physical Therapy Re-Evaluation [address] [facility] Physical Medicine Physical Therapy Re-Evaluation Physical Medicine Physical Therapy Re-Evaluation [address] [facility] Physical Medicine Physical Therapy Re-Evaluation Physical Medicine Physical Therapy Re-Evaluation [address] [facility] Physical Therapy: ___ Se ion Segments, 15 Minutes Each Physical Therapy: ___ Session Segments, 15 Minutes Each 20604 [address] [facility] Phys Therapy Education Self Care Training - Per 15 Minutes Phys Therapy Education Self Care Training - Per 15 Minutes 97526 2008 NISA MICHAELS Knee orthosis, adjustable knee joints (unicentric or polycentric), positional orthosis, rigid support, prefabricated, includes fitting and adjustment [address] [facility] Physical Medicine Physical Therapy Re-Evaluation Physical Medicine Physical Therapy Re-Evaluation [address] [facility] Modalities Cryotherapy Cold Packs Modalities Cryotherapy Cold Packs [address] [facility] Physical Therapy: ___ Se ion Segments, 15 Minutes Each Physical Therapy: ___ Session Segments, 15 Minutes Each [address] [facility] Physical Therapy Neuromuscular Re-education Physical Therapy Neuromuscular Re-education [address] [facility] Crutches, underarm, other than wood, adjustable or fixed, pair, with pads, tips and handgrips [address] [facility] Phys Therapy Education Self Care Training - Per 15 Minutes Phys Therapy Education Self Care Training - Per 15 Minutes [address] [facility] Physical Therapy Neuromuscular Re-education Physical Therapy Neuromuscular Re-education [address] [facility] Modalities Cryotherapy Cold Packs Modalities Cryotherapy Cold Packs [address] [facility] Physical Therapy: ___ Se ion Segments, 15 Minutes Each Physical Therapy: ___ Session Segments, 15 Minutes Each [address] [facility] Modalities Cryotherapy Cold Packs Modalities Cryotherapy Cold Packs [address] [facility] Physical Therapy Neuromuscular Re-education Physical Therapy Neuromuscular Re-education [address] [facility] Physical Therapy: ___ Se ion Segments, 15 Minutes Each Physical Therapy: ___ Session Segments, 15 Minutes Each [address] [facility] Modalities Cryotherapy Cold Packs Modalities Cryotherapy Cold Packs [address] [facility] Physical Therapy Neuromuscular Re-education Physical Therapy Neuromuscular Re-education [address] [facility] Physical Therapy: ___ Se ion Segments, 15 Minutes Each Physical Therapy: ___ Session Segments, 15 Minutes Each 05644 2008 ENDER CROW Physical Therapy Neuromuscular Re-education Physical Therapy Neuromuscular Re-education 02719 [address] [facility] Modalities Cryotherapy Cold Packs Modalities Cryotherapy Cold Packs 46141 2008 NISHA ARASELI [facility] Physical Therapy: ___ Se ion Segments, 15 Minutes Each Physical Therapy: ___ Session Segments, 15 Minutes Each 91377 2008 NISHA ARASELI [facility] Modalities Cryotherapy Cold Packs Modalities Cryotherapy Cold Packs 00017 2008 ENDER CROW Physical Therapy Neuromuscular Re-education Physical Therapy Neuromuscular Re-education 11931 2008 ENDER CROW Physical Therapy: ___ Se ion Segments, 15 Minutes Each Physical Therapy: ___ Session Segments, 15 Minutes Each 77716 2008 ENDER CROW Modalities Cryotherapy Cold Packs Modalities Cryotherapy Cold Packs [address] [facility] Physical Therapy Neuromuscular Re-education Physical Therapy Neuromuscular Re-education [address] [facility] Physical Therapy: ___ Se ion Segments, 15 Minutes Each Physical Therapy: ___ Session Segments, 15 Minutes Each [address] [facility] Phys Therapy Education Self Care Training - Per 15 Minutes Phys Therapy Education Self Care Training - Per 15 Minutes [address] [facility] Exercises A isted Exercises For ROM Exercises Assisted Exercises For ROM 52589 2008 MATTIE LOVE Physical Medicine Physical Therapy Evaluation Physical Medicine Physical Therapy Evaluation 82027 2008 MATTIE LOVE X-Ray Knee Views Right Knee AP And Lateral Views X-Ray Knee Views Right Knee AP And Lateral Views [address] [facility] Knee orthosis, double upright, thigh and calf, with adjustable flexion and extension joint (unicentric or polycentric), medial-lateral and rotation control, with or without varus/valgus adjustment, prefabricated, includes fitting and adjustment 2008 MINERVA ZAYAS A e ment & Intervention Use Of Tobacco A e ed Assessment & Intervention Use Of Tobacco Assessed 1000F 2008 KT MARES Hepatitis A And Hepatitis B (Intramuscular Use) Adult Dosage Hepatitis A And Hepatitis B (Intramuscular Use) Adult Dosage 21945 2008 JANELLE JOHNSON Physical Therapy Neuromuscular Re-education Physical Therapy Neuromuscular Re-education 69253 2007 MIGUEL JOY Physical Therapy: ___ Se ion Segments, 15 Minutes Each Physical Therapy: ___ Session Segments, 15 Minutes Each 83461 2007 MIGUEL JOY Physical Therapy: ___ Se ion Segments, 15 Minutes Each Physical Therapy: ___ Session Segments, 15 Minutes Each 50907 2007 MIGUEL JOY Physical Therapy: ___ Se ion Segments, 15 Minutes Each Physical Therapy: ___ Session Segments, 15 Minutes Each 43110 2007 MIGUEL JOY 45 min treat time DoD Physical Therapy: ___ Se ion Segments, 15 Minutes Each Physical Therapy: ___ Session Segments, 15 Minutes Each 18543 2007 MIGUEL JOY Physical Medicine Physical Therapy Evaluation Physical Medicine Physical Therapy Evaluation 66195 2007 MIGUEL JOY Phys Therapy Education Self Care Training - Per 15 Minutes Phys Therapy Education Self Care Training - Per 15 Minutes 38390 2007 MIGUEL JOY Crutches, underarm, wood, adjustable or fixed, pair, with pads, tips and handgrips 2007 ANKIT ALCARAZ metal crutches Curt Physical Therapy Gait Training Physical Therapy Gait Training 19718 2007 ANKIT ALCARAZ Hepatitis A And Hepatitis B (Intramuscular Use) Adult Dosage Hepatitis A And Hepatitis B (Intramuscular Use) Adult Dosage 49035 2007 QUYNH MONTENEGRO Vaccines Viral Polio, Inactivated (Salk) Vaccines Viral Polio, Inactivated (Salk) 57946 2007 QUYNH MONTENEGRO Meningococcal Polysaccharide Vaccine (Active) Meningococcal Polysaccharide Vaccine (Active) 63251 2007 [facility] Immunization Administration Each Additional Vaccine 2007 [facility] Td Vaccine Td Vaccine 60070 2007 [facility] Immunization Administration One Vaccine Immunization Administration One Vaccine 83806 2007 [facility] Ear mold/insert, not disposable, any type 2007 NANCI SIMS Ear Protector Attenuation Measurements Ear Protector Attenuation Measurements 04717 2007 NANCI SIMS Threshold Audiogram (Pure Tone) Threshold Audiogram (Pure Tone) 88904 2007 NANCI SIMS Audiometry Group Testing Audiometry Group Testing [address]Supervised Group Educational Services 2007 NANCI SIMS Special Services Analysis Of Computerized Data Special Services Analysis Of Computerized Data 75353 2007 NANCI SIMS Skin Test Anergy Tuberculin Intradermal Skin Test Anergy Tuberculin Intradermal 70264 2007 [facility] Immunization Administration One Vaccine Immunization Administration One Vaccine 67028 2007 [facility] Screening Test Of Visual Acuity, Quantitative, Bilateral Screening Test Of Visual Acuity, Quantitative, Bilateral 90640 2015 JESSIKA ROCHE Threshold Audiogram (Pure Tone) Automated Threshold Audiogram (Pure Tone) Automated 0208T [address] [facility] Telehealth originating site facility fee [address] [facility] Non-Physician Phone Call To Patient/Provider Brief (5-10min) Non-Physician Phone Call To Patient/Provider Brief (5-10min) [address] [facility] Physical Medicine - Group Physical Therapy Se ion Physical Medicine - Group Physical Therapy Session 92064 2014 AIDEN AGUILLON Physical Medicine - Group Physical Therapy Se ion Physical Medicine - Group Physical Therapy Session 87401 2014 AIDEN AGUILLON Knee orthosis, adjustable knee joints (unicentric or polycentric), positional orthosis, rigid support, prefabricated item that has been trimmed, bent, molded, a embled, or otherwise customized to fit a specific patient by an individual with expertise 2014 LEONILA GAO large playmaker ACL knee brace [facility] Physical Medicine - Group Physical Therapy Se ion Physical Medicine - Group Physical Therapy Session 78300 2014 FUNMILAYO BOWLES Physical Medicine - Group Physical Therapy Se ion Physical Medicine - Group Physical Therapy Session 11868 2014 AIDEN AGUILLON Physical or manipulative therapy performed for maintenance rather than anglican 2014 AIDEN AGUILLON Physical Medicine - Group Physical Therapy Se ion Physical Medicine - Group Physical Therapy Session 61403 2014 FUNMILAYO BOWLES Threshold Audiogram (Pure Tone) Threshold Audiogram (Pure Tone) 91968 2014 PEGGY BACH Physical Medicine - Group Physical Therapy Se ion Physical Medicine - Group Physical Therapy Session 77232 2014 AIDEN AGUILLON Physical Medicine - Group Physical Therapy Se ion Physical Medicine - Group Physical Therapy Session 44510 2014 AIDEN AGUILLON Physical Medicine - Group Physical Therapy Se ion Physical Medicine - Group Physical Therapy Session 19762 2014 AIDEN AGUILLON Physical Medicine Physical Therapy Re-Evaluation Physical Medicine Physical Therapy Re-Evaluation 08356 2013 AIDEN AGUILLON Modalities Cryotherapy Cold Packs Modalities Cryotherapy Cold Packs 82609 2013 FUNMILAYO BOWLES Physical Therapy Neuromuscular Re-education Physical Therapy Neuromuscular Re-education 81234 2013 FUNMILAYO BOWLES Physical Medicine Physical Therapy Re-Evaluation Physical Medicine Physical Therapy Re-Evaluation 49099 2013 AIDEN AGUILLON Postoperative Visit, Without Charge Postoperative Visit, Without Charge [address] [facility] Spectacles Services Fitting Monofocals (Not For Aphakia) Spectacles Services Fitting Monofocals (Not For Aphakia) 31483 2013 PITA AWAD [facility] Spectacles Required For Readiness (2 Pair Clear Spectacles, 1 PMI If Uncorrected Bilateral VA Worse Than 20/40, Inserts For CEP). All Required Devices Were Ordered And A Measurement Of anatomical Facial Characteristics , And Distance Between The Pupils Was Performed Ensuring The Spectacle Frame Fits The Patient's Face And Head. Complete Spectacle Ordering Information Is Entered In To SRTS. Full Documentation To Support These Codes Is Found In SRTS, Which Is Part Of The Service Treatment Record (AR 40-66). [facility] Ophthalmological New Patient Start Comprehensive Care Ophthalmological New Patient Start Comprehensive Care 12707 2013 PITA AWAD Determination Of Refractive State Determination Of Refractive State 84766 2013 PITA AWAD Modalities Cryotherapy Cold Packs Modalities Cryotherapy Cold Packs 74814 2013 FUNMILAYO BOWLES Modalities Cryotherapy Cold Packs Modalities Cryotherapy Cold Packs 43940 2013 FUNMILAYO BOWLES Physical Therapy Neuromuscular Re-education Physical Therapy Neuromuscular Re-education 71305 2013 FUNMILAYO BOWLES Physical Therapy Neuromuscular Re-education Physical Therapy Neuromuscular Re-education 42010 2013 AIDEN AGUILLON Modalities Cryotherapy Cold Packs Modalities Cryotherapy Cold Packs 76837 2013 AIDEN AGUILLON Biofeedback Training By Any Modality Biofeedback Training By Any Modality 98651 2013 AIDEN AGUILLON Physical Medicine Physical Therapy Re-Evaluation Physical Medicine Physical Therapy Re-Evaluation 00561 2013 AIDEN AGUILLON Physical Therapy Neuromuscular Re-education Physical Therapy Neuromuscular Re-education 57500 2013 FUNMILAYO BOWLES Postoperative Visit, Without Charge Postoperative Visit, Without Charge [address] [facility] Modalities Cryotherapy Cold Packs Modalities Cryotherapy Cold Packs 94789 2013 AIDEN AGUILLON Physical Therapy Neuromuscular Re-education Physical Therapy Neuromuscular Re-education 05401 2013 AIDEN AGUILLON Biofeedback Training By Any Modality Biofeedback Training By Any Modality 87442 2013 AIDEN AGUILLON Physical Medicine Physical Therapy Re-Evaluation Physical Medicine Physical Therapy Re-Evaluation 54488 2013 AIDEN AGUILLON Physical Therapy Neuromuscular Re-education Physical Therapy Neuromuscular Re-education 23119 2013 AIDEN AGUILLON Exercises A isted Exercises For ROM Exercises Assisted Exercises For ROM 72230 2013 AIDEN AGUILLON Modalities Cryotherapy Cold Packs Modalities Cryotherapy Cold Packs 61742 2013 AIDEN AGUILLON Postoperative Visit, Without Charge Postoperative Visit, Without Charge 11966 2013 ANTOINE BROWN Knee orthosis, double upright, thigh and calf, with adjustable flexion and extension joint (unicentric or polycentric), medial-lateral and rotation control, with or without varus/valgus adjustment, prefabricated item that has been trimmed, bent, molded, a embled, or otherwise customized to fit a specific patient by an individual with expertise 2013 JUAN ANTONIO HENDERSON JR Modalities Cryotherapy Cold Packs Modalities Cryotherapy Cold Packs 53610 2013 AIDEN AGUILLON Physical Therapy Neuromuscular Re-education Physical Therapy Neuromuscular Re-education 35348 2013 AIDEN AGUILLON Exercises A isted Exercises For ROM Exercises Assisted Exercises For ROM 03977 2013 AIDEN AGUILLON Exercises A isted Exercises For ROM Exercises Assisted Exercises For ROM 56393 2013 AIDEN AGUILLON Physical Medicine Physical Therapy Evaluation Physical Medicine Physical Therapy Evaluation 45217 2013 AIDEN AGUILLON Nerve Block Femoral Single 2013 FARHANA ONDANE Nerve Block Sciatic Single 2013 FARHANA ON DANE L Curt Crutches, underarm, other than wood, adjustable or fixed, pair, with pads, tips and handgrips 2013 MICHELE SWANN Physical Therapy Gait Training Physical Therapy Gait Training 99276 2013 MICHELE SWANN Knee orthosis, double upright, thigh and calf, with adjustable flexion and extension joint (unicentric or polycentric), medial-lateral and rotation control, with or without varus/valgus adjustment, prefabricated item that has been trimmed, bent, molded, a embled, or otherwise customized to fit a specific patient by an individual with expertise [address] [facility] Ear Protector Attenuation Measurements Ear Protector Attenuation Measurements [address] [facility] Audiometry Group Testing Audiometry Group Testing [address] [facility] Screening Test Of Visual Acuity, Quantitative, Bilateral Screening Test Of Visual Acuity, Quantitative, Bilateral [address] [facility] Medical Nutrition Therapy Group (2 or More Individual(s)) Medical Nutrition Therapy Group (2 or More Individual(s)) [address] 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 Any adverse medication reactions: no DoD Immunization Administration One Vaccine Immunization Administration One Vaccine [address] [facility] Patient education, not otherwise cla ified, non-physician provider, group, per se ion [address] [facility] PT A e ment Physical Performance Testing PT Assessment Physical Performance Testing 18528 [address] [facility] Ear mold/insert, not disposable, any type [address] [facility] Audiometry Group Testing Audiometry Group Testing [address] [facility] Health And Behav A e mt Each 15 Min Initial A e ment Health And Behav Assessmt Each 15 Min Initial Assessment [address] [facility] Physical Medicine Physical Therapy Re-Evaluation Physical Medicine Physical Therapy Re-Evaluation [address] [facility] Physical Medicine Physical Therapy Re-Evaluation Physical Medicine Physical Therapy Re-Evaluation [address] [facility] Physical Medicine Physical Therapy Re-Evaluation Physical Medicine Physical Therapy Re-Evaluation [address] [facility] Physical Therapy: ___ Se ion Segments, 15 Minutes Each Physical Therapy: ___ Session Segments, 15 Minutes Each [address] [facility] Physical Medicine - Group Physical Therapy Se ion Physical Medicine - Group Physical Therapy Session 06[address] [facility] Physical Medicine Physical Therapy Re-Evaluation Physical Medicine Physical Therapy Re-Evaluation [address] [facility] Modalities Cryotherapy Cold Packs Modalities Cryotherapy Cold Packs 38540 2008 STAR HUA [facility] Exercises A isted Exercises For ROM Exercises Assisted Exercises For ROM 74910 2008 STAR HUA [facility] Physical Therapy Neuromuscular Re-education Physical Therapy Neuromuscular Re-education 19642 2008 STAR HUA [facility] Physical Medicine - Group Physical Therapy Se ion Physical Medicine - Group Physical Therapy Session 17268 2008 STAR HUA [facility] Modalities Cryotherapy Cold Packs Modalities Cryotherapy Cold Packs [address] [facility] Physical Therapy Neuromuscular Re-education Physical Therapy Neuromuscular Re-education [address] [facility] Physical Therapy: ___ Se ion Segments, 15 Minutes Each Physical Therapy: ___ Session Segments, 15 Minutes Each [address] [facility] Physical Medicine Physical Therapy Re-Evaluation Physical Medicine Physical Therapy Re-Evaluation [address] [facility] Ophthalmological Prior Patient Start Intermediate Level Care Ophthalmological Prior Patient Start Intermediate Level Care [address] [facility] Modalities Cryotherapy Cold Packs Modalities Cryotherapy Cold Packs [address] [facility] Physical Therapy: ___ Se ion Segments, 15 Minutes Each Physical Therapy: ___ Session Segments, 15 Minutes Each [address] [facility] Physical Medicine - Group Physical Therapy Se ion Physical Medicine - Group Physical Therapy Session 00147 [address] [facility] Modalities Cryotherapy Cold Packs Modalities Cryotherapy Cold Packs [address] [facility] Physical Medicine - Group Physical Therapy Se ion Physical Medicine - Group Physical Therapy Session [address] [facility] Physical Therapy: ___ Se ion Segments, 15 Minutes Each Physical Therapy: ___ Session Segments, 15 Minutes Each [address] [facility] Modalities Cryotherapy Cold Packs Modalities Cryotherapy Cold Packs [address] [facility] Physical Therapy: ___ Se ion Segments, 15 Minutes Each Physical Therapy: ___ Session Segments, 15 Minutes Each [address] [facility] Physical Medicine - Group Physical Therapy Se ion Physical Medicine - Group Physical Therapy Session [address] [facility] Modalities Cryotherapy Cold Packs Modalities Cryotherapy Cold Packs [address] [facility] Physical Therapy: ___ Se ion Segments, 15 Minutes Each Physical Therapy: ___ Session Segments, 15 Minutes Each [address] [facility] Physical Medicine - Group Physical Therapy Se ion Physical Medicine - Group Physical Therapy Session [address] [facility] Modalities Cryotherapy Cold Packs Modalities Cryotherapy Cold Packs [address] [facility] Physical Therapy Neuromuscular Re-education Physical Therapy Neuromuscular Re-education 91669 [address] [facility] Physical Medicine - Group Physical Therapy Se ion Physical Medicine - Group Physical Therapy Session [address] [facility] Training And Self-Care Skills Training And Self-Care Skills [address] 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 Social History Type Response Date Comment Sourc e Tobacco smoking status NHIS VA-TOBACCO USE FORMER CIGARETTES 02/06/2024 [facility] History of tobacco use VA-TOBACCO NEVER USED OTHER TYPE 02/06/2024 [facility] History of tobacco use VA-TOBACCO FORMER USER 12/12/2022 [facility] History of tobacco use VA-TOBACCO QUIT 1 TO < 5 YRS 10/07/2019 [facility] History of tobacco use VA-TOBACCO USER EVERY DAY 07/09/2017 [facility] History of tobacco use TOBACCO USER OFFERED MEDS 07/02/2017 [facility] History of tobacco use CURRENT TOBACCO USER 11/18/2016 [place] [facility] History of tobacco use CURRENT TOBACCO USER 10/20/2015 [place] [facility] [facility] This section is an empty social history section. DoD
== END 2024-10-11 15:33 | disposition home or self-care (01) ==
LOC: CHSIMG 15:33
PROVIDERS: PCP Family Medicine; Visit Provider Family Medicine
DX: S62.624A Displaced fracture of middle phalanx of right ring finger, initial encounter for closed fracture (principal); M79.641 Pain in right hand
CPT/HCPCS: 73130